=== PATIENT | male | born 1990 | race Two or more races ===

== ENCOUNTER 2025-01-16 14:33 | Emergency (ER) | payer MEDICAID, SELFPAY ==
[2025-01-16 15:18] VITALS: BP 144/83; PULSE 103; RESP 18; TEMP 37.4; O2SAT 97; BMI 28.3
--- NOTE | 2025-01-16 15:41 | XR_ITS ---
Examination: Foot, left, 3 views Technique: AP, oblique, lateral views foot, 3 views Date and time of exam: January 16, 2025, 1605 hours INDICATIONS: Left foot swelling and pain beginning 3 days ago FINDINGS: Soft tissue swelling about the fourth digit No fracture No severo cortical bone destruction IMPRESSION: Prominent soft tissue swelling about the fourth digit although no severo cortical bone destruction MRI foot without contrast follow-up would best assess for early osteomyelitis fourth digit as well as soft tissue abscess
--- NOTE | 2025-01-16 15:41 | XR_ITS ---
EXAMINATION: Ankle, left 3 views. Technique: Ankle AP, oblique, lateral 3 views Date and time of exam: January 16, 2025, 1601 hours INDICATIONS: Left ankle pain today FINDINGS: Bimalleolar soft tissue swelling No ankle fracture or dislocation No foreign body IMPRESSION: No ankle fracture or dislocation
--- NOTE | 2025-01-16 15:45 | PD.EDRME ---
Rapid Medical Screening Exam E Arrival date/time: 01/16/25 14:33 This is a 34-year-old male that comes into the emergency room with complaints of left foot swelling. Patient states has been going on for the past 2 to 3 days. Patient states he is diabetic. Patient has fever and chills. I have greeted and performed a focused initial assessment of this patient. Initial appropriate labs ordered at this time. A comprehensive ED assessment and evaluation of the patient and analysis of all test and completion of medical decision making process will be conducted by additional ED provider. Chief Complaint: Skin/Abscess/Foreign Body Time Seen by Provider: 01/16/25 15:03 Vital signs: Vital Signs Temperature 99.4 F 01/16/25 15:18 Pulse Rate 103 H 01/16/25 15:18 Respiratory Rate 18 01/16/25 15:18 Blood Pressure 144/83 H 01/16/25 15:18 Pulse Oximetry (%) 97 01/16/25 15:18 Oxygen Delivery Method Room Air 01/16/25 15:18 Exam: Pain to right foot with mild erythema around the toes. Breathing even unlabored. Alert and oriented Clinical Impression: Foot pain
--- NOTE | 2025-01-16 16:07 | PC.NURSE ---
PT CALLED BACK TO BE TAKEN TO A ROOM. NO RESPONSE FROM LOBBY OR OUTSIDE X1 @[phone]
[2025-01-16 16:15] LABS: Lactate (Lactic Acid) 1.3 mMol/L (0.4-2.0)
[2025-01-16 16:24] LABS: Basophils # (Auto) 0.0 Thou/mm3 (0.0-0.2); Basophils % (Auto) 0 % (0-2.5); Eosinophils # (Auto) 0.1 Thou/mm3 (0.0-0.5); Eosinophils % (Auto) 1 % (0-10); Hematocrit 41.7 % (41.0-53.0); Hemoglobin 14.4 g/dL (13.5-16.0); Immature Granulocytes Auto 0.03 Thou/mm3 (0.00-0.00); Lymphocytes # (Auto) 0.7 Thou/mm3 (1.0-4.8); Lymphocytes % (Auto) 7 % (10-50); Mean Corpuscular HGB Conc 34.5 g/dl (31.0-37.0); Mean Corpuscular Hemoglobin 30.1 pg (25.0-35.0); Mean Corpuscular Volume 87 fL (80-100); Monocytes # (Auto) 0.5 Thou/mm3 (0.0-0.8); Monocytes % (Auto) 5 % (0-12); Neutrophils # (Auto) 9.1 Thou/mm3 (1.8-7.7); Neutrophils % (Auto) 87 % (37-80); Nucleated Red Blood Cell # 0.00 Thou/mm3 (0.00-0.00); Nucleated Red Blood Cell % 0 /100 WBC (0); Platelet Count 162 Thou/mm3 (140-440); RDW Standard Deviation 37.5 fL (35.1-43.9); Red Blood Count 4.79 Miln/mm3 (4.50-5.90); White Blood Count 10.4 Thou/mm3 (3.8-10.6)
--- NOTE | 2025-01-16 16:28 | PC.NURSE ---
PT IN TODAY WITH LEFT FOOT PAIN AND WOUND. PT STATES THAT HE HAD A WART IN BETWEEN THE 4TH AND 5TH TOE AND THEN WORE HIS SHOES, WHICH WERE TIGHTER AND THEN NOTICED DISCOLORATION AND FOUL SMELL COMING FOR WOUND. ON ASSESSMENT PT DOES PRESENT WITH DISCOLORATION AND DRAINAGE. DR. SHARMA AT BEDSIDE.
--- NOTE | 2025-01-16 16:50 | EDNOTE_ITS ---
<Statement entered by Deysi Penn MD - 01/17/25 17:58> I, Deysi Penn MD, have reviewed the history, exam, and assessment of the patient. I have evaluated the patient independently and agree with the plan of care documented by [ ]. All diagnostic studies were reviewed and discussed. I confirm the diagnosis as documented by the Resident. I was present during the Medical Decision Making for this patient. The patient's plan of care was created between myself and the Resident and consistent with our discussion of the patient's case. ED Skin Abcess FB-RME/HPI General Chief complaint: Skin/Abscess/Foreign Body Stated complaint: LEFT FOOT PAIN/SWELLING, HIGH BS Time Seen by Provider: 01/16/25 15:03 Arrival date/time: 01/16/25 14:33 addendum to note: Hospital team and general surgery had accepted patient but patient refused admission. Patient is alert and oriented x 3 has full capacity. Patient understands risk of limb, blood infection, and loss of life by living. Antibiotics will be sent to patient's pharmacy with understanding if symptoms worsen-including but not limited to fever, worsening pain, and worsening swelling, to return to the emergency room. Patient left against medical advice. 2 weeks of Doxycyline 100 mg BID and Amoxicllin-[id number] mg BID for 2 weeks. Nuha Villa MD PGY-2 RME / HPI RME / HPI narrative: 01/16/25 14:33 CC: left foot swelling Patient is a 34-year-old male with a past medical history of diabetes mellitus type 2 insulin-dependent, non-adherent to insulin possibly glargine 35 units daily who presented to the emergency room via private vehicle with a chief complaint of left foot pain and swelling. Stated symptoms started approximately 8 months ago after using a nail clipper to remove excess skin between 4th and 5th digit. Swelling and erythema has increased within the last 2-3 days. Paitnet denied pain to site. Denied trauma. Per patient, last tetanus shot about 1 year ago. Last A1c 12.1 per patient's PCP. Exam: Pain to right foot with mild erythema around the toes. Breathing even unlabored. Alert and oriented Impression: Foot pain Related Data Home Medications ?Medication ?Instructions ?Recorded ?Confirmed insulin pump cartridge 05/13/17 05/13/17 metformin 500 mg tablet 500 mg PO BID 05/13/1705/13 Previous Rx's ?Medication ?Instructions ?Recorded amoxicillin 875 mg-potassium 1 tab PO BID diabetic julius t 01/16/25 clavulanate 125 mg tablet infection 2 weeks #28 tabs doxycycline monohydrate 100 mg 100 mg PO BID diabetic foot 01/16/25 capsule infection 2 weeks #28 caps Allergies Allergy/AdvReac Type Severity Reaction Status Date / Time WATERMELON Allergy Unknown Uncoded 05/13/17 17:52 Review of Systems Review of Systems Narrative Review of Systems: General appearance: NO weight change, NO fatigue, NO weakness, NO fever, NO chills, NO night sweats, No cough Skin: NO rash, NO itching, NO sores, NO moles HEENT: NO Trauma, NO nausea, NO vomiting, NO visual changes, NO blurry vision, NO double vision, NO tinnitus, NO vertigo, NO ear discharge, NO rhinorrhea, NO stuffiness, NO sneezing, NO allergy, NO epistaxis. NO Hoarseness, NO sore throat, NO swollen neck. Cardiac: NO Palpitations, NO dyspnea on exertion, NO orthopnea, NO paroxysmal nocturnal dyspnea, NO edema Respiratory: NO Shortness of Breath, NO Wheezing, NO Cough, NO Sputum, NO hemoptysis GI:NO appetite, NO nausea, NO vomiting, NO dysphagia, NO changes in bowel frequency, NO stool color, NO diarrhea, NO constipation, NO hemetemesis, NO hemorrhoids, NO melena, NO hematechezia, NO abdominal pain, NO jaundice Renal: NO frequency, NO hesitancy, NO urgency, NO hematuria, NO nocturia, NO incontinence MSK: Swelling and Redness between 4th and 5th digits on left lower extremity, NO muscle weakness, NO gout, NO arthritis, NO muscle stiffness Neuro: NO headaches, NO tremors, NO weakness, NO paralysis, NO seizures, NO loss of consciousness, NO numbness. Hem: NO anemia, NO easy bruising/bleeding, NO petechiae, NO purpura Endo: NO heat/cold intolerance, NO excessive sweating, NO polyuria, NO polydipsia, NO polyphagia, NO thyroid problems, Yes diabetes Pysch: NO mood, NO anxiety, NO depressiona ED Exam Narrative Physical exam: General Appearance: Alert & Oriented X3, well-nourished male who is lying in bed in no acute distress. Left lower extremity between 4-5 digit white discharge noted, foul smelling, erythematous, and warm to touch, Right 5th digit diabetic foot ulcer HEENT: Skull symmetrical and atraumatic. Conjunctivae pink and moist. Pupils equal, round, reactive to light and accommodation (PERRL). External ear without lesion or discharge. Straight, nares patient, mucosa pink, no discharge. Cardio: Normal Rate and Rhythm with S1 and S2 heart sounds. No murmurs or extra heart sounds auscultated. No bruits on carotid auscultation. No peripheral edema or cyanosis. Lungs: Symmetric with good expansion. Chest and back non-tender. Breath sounds vesicular without crackles, wheezing or rhonchi Abdomen: Non-tender, Non-distended, Normal Reactive Bowel Sounds Neuro: Alert, cooperative, oriented to person, place, and time. Speech clear. CN grossly intact. Upper motor strength 5/5 and Lower motor strength 5/5. Sensation intact. Course Course Course Narrative: CBC CMP Lactic Acid ESR CRP Ankle and Foot x-ray Quality Measures none Orders Category Date Time Status Consult to General Surgery Stat Cons 01/16/25 17:39 Ordered XR ankle comp LT min 3V Stat Exams 01/16/25 15:41 Completed XR foot comp LT min 3V Stat Exams 01/16/25 15:41 Completed A1C [Glycohemoglobin w (eAG)] Routine Lab 01/16/25 15:55 Received Blood Culture (Lab) Stat Lab 01/16/25 16:00 Received CBC Stat Lab 01/16/25 15:55 Completed CRP [C-Reactive Protein] Stat Lab 01/16/25 15:55 Completed Comprehensive Metabolic Panel Stat Lab 01/16/25 15:55 Completed ESR [Sed Rate (ESR)] Stat Lab 01/16/25 15:55 Completed Lactate (Lactic Acid) Stat Lab 01/16/25 15:55 Completed Procalcitonin Stat Lab 01/16/25 15:55 Completed Urinalysis, C/S if Indicated Stat Lab 01/16/25 16:46 Completed INSULIN LISPRO (AdmeLOG) [HumaLOG] Med 01/16/25 16:50 Discontinued 3 unit SC X1 ONE cefTRIAXone/D5w 1gm IV premix [Rocephin/D5w 1gm IV Med 01/16/25 16:49 Discontinued premix] 1 gm in 50 ml IV X1 metroNIDAZOLE/NS 500 MG IVPB [Flagyl 500 mg IV] Med 01/16/25 16:49 Discontinued 500 mg in 100 ml IV X1 Vital Signs Vital signs: Vital Signs Temperature 99.4 F 01/16/25 15:18 Pulse Rate 103 H 01/16/25 15:18 Respiratory Rate 18 01/16/25 15:18 Blood Pressure 144/83 H 01/16/25 15:18 Pulse Oximetry (%) 97 01/16/25 15:18 Oxygen Delivery Method Room Air 01/16/25 15:18 Skin / Abscess / Foreign Body Patient data External records reviewed:: Other (specify) Clinical information provided by:: patient Social determinants that could affect healthcare access:: none Patient has the following chronic illnesses:: Diabetes Mellitus Type 2 How is presenting disease/condition affected by chronic disease/condition?: exacerbated by (by diabetes mellitus type 2 insulin dependent ) Evaluation data The following diagnostics were reviewed and interpreted by me:: lab results, radiology exam(s) and EKG tracing(s) Lab and/or radiology exams considered but not ordered:: None Interpretation Summary: Ira presented wtih a chief complain of soft tissue cellulits/Diabetic Foot likely worsened by history of uncontrolled hyperglycemia/diabetes mellitus type 2 non-insulin depdent Given patient's clinical presentation with erythema, warmth, and discharge from 4th and 5th digit, likely soft tissue cellulitis. foot x-ray noted to have swelling. Medications / Prescriptions Medications or Prescriptions considered but not ordered:: None Medication administrations:: Medication Administration History Discontinued Medications Ceftriaxone Sodium/Dextrose (Rocephin/D5w 1gm Iv Premix) 1 gm in 50 mls @ 100 mls/hr IV X1 ONE Stop: 01/16/25 17:18 Last Infusion: 01/16/25 17:48 Dose: Infused Documented By: Admin: 01/16/25 17:16 Dose: 100 mls/hr Documented By: KRIS Metronidazole (Flagyl 500 Mg Iv) 500 mg in 100 mls @ 100 mls/hr IV X1 ONE Stop: 01/16/25 17:48 Last Admin: 01/16/25 17:47 Dose: 100 mls/hr Documented By: KRIS Insulin Human Lispro (Insulin Lispro (Admelog) 1 Unit/0.01 Ml Unit) 3 unit SC X1 ONE Stop: 01/16/25 16:51 Last Admin: 01/16/25 17:21 Dose: 3 unit Documented By: KRIS Co-signed By: ED same as above Consultations Consultation(s) initiated? (list below): Yes Consultation #1 (Physician, Specialty, Details): General Surgery, Dr. Masters Time: 05:35 Diagnosis Skin/Abscess Differential Diagnosis: cellulitis, insect bites and other (Osteo ) Most likely diagnosis given after review of the tests above:: Patient presented with a chief complain of soft tissue cellulits likely worsened by history of uncontrolled hyperglycemia/diabetes mellitus type 2 non-insulin depdendent Given patient's clinical presentation with erythema, warmth, and discharge from 4th and 5th digit, likely soft tissue cellulitis. foot x-ray noted to have swelling. - The patient's plan was discussed with attending Dr. Fili Villa MD PGY2 Internal Medicine Admission Indicated Admission indicated?: indicated Explain why admission is indicated or not indicated:: I&D for soft tissue cellulitis that is noted to have erythema, swelling, and foul smelling discharge. Admission Request Was there a request for admission?: Yes Admission Attestation Admission request attestation: Discussed case with [] from Hospitalist service regarding admission. Discussed patients ED course, exam findings, labs, and radiology results. The Hospitalist [agrees,declines] to accept the patient for admission. Disposition Plan Disposition Plan: Admit Discharge Plan Plan Patient Disposition: Admit Acute Care w/in Hospital Prescriptions/Referrals Prescriptions/Med Rec: New amoxicillin-pot clavulanate 875-125 mg tablet 1 tab PO BID 14 Days Qty: 28 0RF doxycycline monohydrate 100 mg capsule 100 mg PO BID 14 Days Qty: 28 0RF Continued metformin 500 mg Tablet 500 mg PO BID (DME) insulin pump cartridge Cartridge Referrals: Yann Sun MD [Primary Care Provider, Family Practice] - In 1 week Problem List Clinical Impression: Diabetic foot infection, Cellulitis, Soft tissue infection Patient/Caregiver Discharge Instructions Print Language: Cameroonian Stand Alone Forms: Shonna Award Info., Patient Portal Info Letter
[2025-01-16 16:51] LABS: Collection Type, Urine Voided; Squamous Epithelial Cell,Urine 0 /hpf (0-5)
[2025-01-16 17:08] LABS: Bacteria,Urine Rare; Bilirubin,Urine Negative (Negative); Blood,Urine 2+ (Negative); Clarity,Urine Clear (Clear/Hazy); Color,Urine Yellow (Lt Yel-Yel); Culture Indicated,Urine Not Indicated; Glucose, Urine 4+ (Negative); Ketones,Urine Negative (Negative); Leukocyte Esterase,Urine Negative (Negative); Nitrite,Urine Negative (Negative); PH,Urine 6.0 (5.0-7.0); Protein,Urine 2+ (Neg - Trace); RBC,Urine 30 /hpf (0-3); Urobilinogen,Urine 2.0 mg/dL (0.0-1.0); WBC,Urine 1 /hpf (0-5)
[2025-01-16 17:13] LABS: Specific Gravity,Urine 1.025 (1.001-1.035)
[2025-01-16] MEDS: cefTRIAXone/D5w 1gm IV premix 1 GM/50 ML BAG IV (17:16)
[2025-01-16] MEDS: INSULIN LISPRO (AdmeLOG) 1 UNIT/0.01 ML UNIT 3 UNIT SC (17:21)
[2025-01-16 17:24] LABS: Alanine Aminotransferase 24 U/L (10-49); Albumin, Serum 4.7 gm/dL (3.5-5.0); Albumin/Globulin Ratio 1.8 (1.2-2.2); Alkaline Phosphatase 105 U/L (46-116); Anion Gap 9 (7-16); Aspartate Amino Transferase 23 U/L (0-34); BUN/Creatinine Ratio 12 Ratio (12-20); Bilirubin,Total 0.8 mg/dL (0.3-1.2); Blood Urea Nitrogen 14 mg/dL (9-23); C-Reactive Protein 5.3 mg/dL (0.0-0.9); Calcium 9.4 mg/dL (8.3-10.6); Calcium (Corrected) 9.4 mg/dL (8.5-10.1); Carbon Dioxide 28.3 mMol/L (20.0-31.0); Chloride 101 mMol/L (98-107); Creatinine (Component) 1.2 mg/dL (0.6-1.3); Estimated Creatinine Clearance 88.1 mL/min (>60); Globulin 2.6 gm/dL (2.3-3.5); Glucose 359 mg/dL (74-106); Osmolality,Calculated 290 (275-295); Potassium 4.6 mMol/L (3.4-5.1); Procalcitonin 0.10 ng/ml (0.0-0.49); Sodium 138 mMol/L (136-145); Total Protein 7.3 gm/dL (5.7-8.2); eGFR > 60 See Note
[2025-01-16] MEDS: metroNIDAZOLE/NS 500 MG IVPB 500 MG/100 ML BAG 100 MG IV (17:47)
[2025-01-16 17:55] LABS: Sed Rate (ESR) 61 mm/hr (0-15)
--- NOTE | 2025-01-16 18:26 | PC.NURSE ---
PT WAS TALKING TO DR. DEL VALLE AND WANTS TO LEAVE AMA. PT WAS EXPLAINED THAT HIS INFECTION TO HIS TOE COULD GET WORSE AND EVEN CAUSE . PT VERBALIZED UNDERSTANDING AND SIGNED AMA PAPERWORK.
[2025-01-16 18:29] LABS: Glucose Estimated Average 286 mg/dL (80-131); Hemoglobin A1C 11.6 % Hgb (4.8-6.0)
--- NOTE | 2025-01-16 18:34 | EVENTNT_ITS ---
Documentation for date of: 01/16/25 Event Note Event Note: Mr Dumont is a 34 year old gentleman with a history of uncontrolled DM not taking insulin as prescribed due to a fear of needles, he was noted to have worsening L foot pain and swelling of his fourth digit with imaging c/f osteomyelitis, elevated CRP. Surgery was consulted for the L toe by the ed and inpatient medicine team was called for admission. I went to evaluate the patient who expressed that he did not want to stay in the hospital, stating that he had to take care of a few things and that he would return to the hospital after making arrangements for his dog, and his work, and his upcoming orientation with [employer]. ED physician was notified of patient requesting to leave and was counseled by them about the risks of leaving against medical advice. VS: tachycardic to 103, afebrile, satting well on room air PE: I visually inspected his L foot which demonstrated an erythematous and edetous L fourth digit with erythema extending to the dorsum of the foot with clear line of demarcation. Plan discussed with my attending Dr. Bibi Dietz MD PGY1
== END 2025-01-16 18:25 | disposition admitted as inpatient to this hospital (09) ==
PROVIDERS: Emergency Provider Nurse Practitioner Family; PCP Family Medicine
DX: E11.628 Type 2 diabetes mellitus with other skin complications (principal); L02.612 Cutaneous abscess of left foot
CPT/HCPCS: 36415; 73610; 73630; 80053; 81001; 83036; 83605; 84145; 85025; 85652; 86140; 87040; 96365; 99283; J0696; J1815; J3490; J1836

== ENCOUNTER 2025-01-17 11:41 | Inpatient (IN) | payer MEDICAID, SELFPAY ==
[2025-01-17 11:41] VITALS: BMI 28.3
[2025-01-17 11:56] VITALS: BP 147/98; PULSE 89; RESP 18; TEMP 36.9; O2SAT 99
--- NOTE | 2025-01-17 12:02 | EDRME_ITS ---
Rapid Medical Screening Exam [facility] Arrival date/time: 01/17/25 11:41 34-year-old male with a history of type 2 diabetes presents to the emergency room with a chief complaint of osteomyelitis to his left foot fourth digit. Patient was admitted yesterday for osteomyelitis but the patient signed out AGAINST MEDICAL ADVICE due to personal matters. I have greeted and performed a focused initial assessment of this patient. A comprehensive ED assessment and evaluation of the patient, analysis of all test results, and completion of the medical decision making process will be conducted by additional ED providers. Chief Complaint: Ankle/Foot Injury Time Seen by Provider: 01/17/25 11:59 Vital signs: Vital Signs Temperature 98.5 F 01/17/25 11:56 Pulse Rate 89 01/17/25 11:56 Respiratory Rate 18 01/17/25 11:56 Blood Pressure 147/98 H 01/17/25 11:56 Pulse Oximetry (%) 99 01/17/25 11:56 Oxygen Delivery Method Room Air 01/17/25 11:56 Vital signs reviewed by provider: Yes Exam: Erythemic, pus draining, tender fourth digit in the left foot Patient is a GCS of 15 alert oriented x 3 Clinical Impression: Osteomyelitis/cellulitis
[2025-01-17 12:24] LABS: Lactate (Lactic Acid) 1.2 mMol/L (0.4-2.0)
[2025-01-17 12:25] LABS: Basophils # (Auto) 0.0 Thou/mm3 (0.0-0.2); Basophils % (Auto) 0 % (0-2.5); Eosinophils # (Auto) 0.1 Thou/mm3 (0.0-0.5); Eosinophils % (Auto) 1 % (0-10); Hematocrit 39.9 % (41.0-53.0); Hemoglobin 13.3 g/dL (13.5-16.0); Immature Granulocytes Auto 0.01 Thou/mm3 (0.00-0.00); Lymphocytes # (Auto) 0.9 Thou/mm3 (1.0-4.8); Lymphocytes % (Auto) 12 % (10-50); Mean Corpuscular HGB Conc 33.3 g/dl (31.0-37.0); Mean Corpuscular Hemoglobin 29.7 pg (25.0-35.0); Mean Corpuscular Volume 89 fL (80-100); Monocytes # (Auto) 0.5 Thou/mm3 (0.0-0.8); Monocytes % (Auto) 7 % (0-12); Neutrophils # (Auto) 6.0 Thou/mm3 (1.8-7.7); Neutrophils % (Auto) 80 % (37-80); Nucleated Red Blood Cell # 0.00 Thou/mm3 (0.00-0.00); Nucleated Red Blood Cell % 0 /100 WBC (0); Platelet Count 166 Thou/mm3 (140-440); RDW Standard Deviation 38.5 fL (35.1-43.9); Red Blood Count 4.48 Miln/mm3 (4.50-5.90); White Blood Count 7.6 Thou/mm3 (3.8-10.6)
[2025-01-17 12:43] LABS: Collection Type, Urine Clean Catch; Squamous Epithelial Cell,Urine 0 /hpf (0-5)
[2025-01-17 12:58] LABS: Bacteria,Urine Rare; Bilirubin,Urine Negative (Negative); Blood,Urine 1+ (Negative); Color,Urine Yellow (Lt Yel-Yel); Glucose, Urine 4+ (Negative); Ketones,Urine 1+ (Negative); Leukocyte Esterase,Urine Negative (Negative); Nitrite,Urine Negative (Negative); PH,Urine 6.5 (5.0-7.0); Protein,Urine 2+ (Neg - Trace); RBC,Urine 60 /hpf (0-3); Specific Gravity,Urine 1.049 (1.001-1.035); Urobilinogen,Urine 4.0 mg/dL (0.0-1.0); WBC,Urine 1 /hpf (0-5)
[2025-01-17 13:02] LABS: Alanine Aminotransferase 19 U/L (10-49); Albumin, Serum 4.4 gm/dL (3.5-5.0); Albumin/Globulin Ratio 1.5 (1.2-2.2); Alkaline Phosphatase 92 U/L (46-116); Anion Gap 7 (7-16); Aspartate Amino Transferase 15 U/L (0-34); BUN/Creatinine Ratio 13 Ratio (12-20); Bilirubin,Total 0.9 mg/dL (0.3-1.2); Blood Urea Nitrogen 13 mg/dL (9-23); C-Reactive Protein 8.0 mg/dL (0.0-0.9); Calcium 9.4 mg/dL (8.3-10.6); Calcium (Corrected) 9.4 mg/dL (8.5-10.1); Carbon Dioxide 28.1 mMol/L (20.0-31.0); Chloride 102 mMol/L (98-107); Creatinine (Component) 1.0 mg/dL (0.6-1.3); Estimated Creatinine Clearance 105.7 mL/min (>60); Globulin 3.0 gm/dL (2.3-3.5); Glucose 292 mg/dL (74-106); Osmolality,Calculated 284 (275-295); Potassium 4.1 mMol/L (3.4-5.1); Procalcitonin 0.26 ng/ml (0.0-0.49); Sodium 137 mMol/L (136-145); Total Protein 7.4 gm/dL (5.7-8.2); eGFR > 60 See Note
[2025-01-17 13:03] LABS: Clarity,Urine Hazy (Clear/Hazy)
[2025-01-17 13:22] LABS: Sed Rate (ESR) 67 mm/hr (0-15)
--- NOTE | 2025-01-17 14:18 | EDNOTE_ITS ---
ED General RME/HPI General Chief complaint: Ankle/Foot Injury Stated complaint: INFECTED LEFT TOE, LEFT AMA YESTERDAY Time Seen by Provider: 01/17/25 11:59 Arrival date/time: 01/17/25 11:41 CC: Left foot pain HPI patient has had infection in the left fifth toe, patient states that he was trying to fix it and dug too deep into it , causing increased pain and swelling now the patient has redness of the toe. Patient was admitted yesterday for osteomyelitis, returns after making arrangements for his dog his work, and his orientation for [employer] on the coming Friday. Patient now notes that he has red streaking to the dorsum of the foot not just the toe. Patient denies fever pain is consistent at a 4 to a 5 on a 10 scale increased to a 7 to an 8 while walking. Patient denies fever vomiting shortness of breath or difficulty breathing. RME / HPI RME / HPI narrative: 01/17/25 11:41 34-year-old male with a history of type 2 diabetes presents to the emergency room with a chief complaint of osteomyelitis to his left foot fourth digit. Patient was admitted yesterday for osteomyelitis but the patient signed out AGAINST MEDICAL ADVICE due to personal matters. I have greeted and performed a focused initial assessment of this patient. A comprehensive ED assessment and evaluation of the patient, analysis of all test results, and completion of the medical decision making process will be conducted by additional ED providers. Exam: Erythemic, pus draining, tender fourth digit in the left foot Patient is a GCS of 15 alert oriented x 3 Impression: Osteomyelitis/cellulitis Related Data Home Medications ?Medication ?Instructions ?Recorded ?Confirmed insulin pump cartridge 05/13/17 01/17/25 metformin 500 mg tablet 500 mg PO BID 05/13/1701/17 Previous Rx's ?Medication ?Instructions ?Recorded amoxicillin 875 mg-potassium 1 tab PO BID diabetic julius t 01/16/25 clavulanate 125 mg tablet infection 2 weeks #28 tabs doxycycline monohydrate 100 mg 100 mg PO BID diabetic foot 01/16/25 capsule infection 2 weeks #28 caps Allergies Allergy/AdvReac Type Severity Reaction Status Date / Time pollen extracts Allergy Severe Swelling Verified 01/17/25 11:44 of Lip/Tongue/Throat Review of Systems Review of Systems Narrative Review of Systems: GEN: No fever, no chills, no weight loss EYES: No discharge, no visual changes, no pain HEENT: No ear pain, no congestion, no sore throat PULM: No shortness of breath, no cough, no congestion CV: No chest pain, no dyspnea on exertion, no palpitations GI: No nausea, no vomiting, no diarrhea, no pain, no constipation : No frequency, no urgency, no dysuria MUSC/SKEL: + joint pain, no back pain SKIN: No rash PSYCH: No hallucinations, no depression HEME/LYMPH: No easy bleeding or bruising tendencies NEURO: No weakness, no headache Past Medical History Past Medical History NEUROLOGIC: Negative Neurological Disorders CARDIAC: Negative Cardiac Disorders or Congestive Heart Failure RESPIRATORY: Negative Chronic Obstructive Pulmonary Disease (COPD) GASTROINTESTINAL: Negative Gastrointestinal Disorders GENITOURINARY: Negative Genitourinary Disorders or Renal Disease MUSCULOSKELETAL: Negative Musculoskeletal Disorders ENDOCRINE: Positive Endocrine Disorders and Diabetes Mellitus Type 2; Negative Diabetes Mellitus Type 1 HEMATOLOGIC: Negative Blood Disorders Social History SMOKING STATUS: Current every day smoker ED Exam Narrative Physical exam: [General: Not in any acute distress Head normocephalic HEENT: Within acceptable limits Neck is supple nontender Chest equal chest rise nontender to palpation Respiratory: Clear to auscultation no wheezes crackles or rubs CV: Rate rhythm is regular no murmurs rubs or clicks Abdomen is soft nontender no masses positive bowel sounds all 4 quadrants Back: No CVA tenderness no spinous process tenderness from cervical spine thoracic and lumbar spine Skin: Large serous bulla to the fifth digit of the left toe with erythematous streaking to the dorsum of the foot. Tender to palpation. Otherwise skin is intact no petechiae rash induration ulceration or crepitus Extremities: Decreased range of motion of the left fifth digit secondary to pain. Otherwise moving all other extremities against resistance cap refill less than 2 seconds neurosensory intact Neuro: Awake alert oriented x3 Glascow coma 15 no focal deficits] Course Quality Measures none Orders Category Date Time Status Patient Condition Routine Admission 01/17/25 15:10 Ordered COVID-19 Screening Questionnaire NOW Care 01/17/25 15:03 Completed Decision to Admit X1 Care 01/17/25 15:03 Completed Notify provider NEEDED Care 01/17/25 15:10 Active Saline [Insert IV] NOW Care 01/17/25 14:15 Active CBC AM DRAW Lab 01/18/25 05:00 Ordered CBC AM DRAW Lab 01/19/25 05:00 Ordered CBC AM DRAW Lab 01/20/25 05:00 Ordered CBC AM DRAW Lab 01/21/25 05:00 Ordered CBC AM DRAW Lab 01/22/25 05:00 Ordered CBC AM DRAW Lab 01/23/25 05:00 Ordered CBC AM DRAW Lab 01/24/25 05:00 Ordered CBC AM DRAW Lab 01/25/25 05:00 Ordered CBC AM DRAW Lab 01/26/25 05:00 Ordered CBC AM DRAW Lab 01/27/25 05:00 Ordered CBC Stat Lab 01/17/25 12:10 Completed CMP [Comprehensive Metabolic Panel] Stat Lab 01/17/25 12:10 Completed CRP [C-Reactive Protein] Stat Lab 01/17/25 12:10 Completed Comprehensive Metabolic Panel AM DRAW Lab 01/18/25 05:00 Ordered Comprehensive Metabolic Panel AM DRAW Lab 01/19/25 05:00 Ordered Comprehensive Metabolic Panel AM DRAW Lab 01/20/25 05:00 Ordered Comprehensive Metabolic Panel AM DRAW Lab 01/21/25 05:00 Ordered Comprehensive Metabolic Panel AM DRAW Lab 01/22/25 05:00 Ordered Comprehensive Metabolic Panel AM DRAW Lab 01/23/25 05:00 Ordered Comprehensive Metabolic Panel AM DRAW Lab 01/24/25 05:00 Ordered Comprehensive Metabolic Panel AM DRAW Lab 01/25/25 05:00 Ordered Comprehensive Metabolic Panel AM DRAW Lab 01/26/25 05:00 Ordered Comprehensive Metabolic Panel AM DRAW Lab 01/27/25 05:00 Ordered ESR [Sed Rate (ESR)] Stat Lab 01/17/25 12:10 Completed Lactate (Lactic Acid) Stat Lab 01/17/25 12:10 Completed Magnesium AM DRAW Lab 01/18/25 05:00 Ordered Magnesium AM DRAW Lab 01/19/25 05:00 Ordered Magnesium AM DRAW Lab 01/20/25 05:00 Ordered Magnesium AM DRAW Lab 01/21/25 05:00 Ordered Magnesium AM DRAW Lab 01/22/25 05:00 Ordered Magnesium AM DRAW Lab 01/23/25 05:00 Ordered Magnesium AM DRAW Lab 01/24/25 05:00 Ordered Magnesium AM DRAW Lab 01/25/25 05:00 Ordered Magnesium AM DRAW Lab 01/26/25 05:00 Ordered Magnesium AM DRAW Lab 01/27/25 05:00 Ordered Phosphorous AM DRAW Lab 01/18/25 05:00 Ordered Phosphorous AM DRAW Lab 01/19/25 05:00 Ordered Phosphorous AM DRAW Lab 01/20/25 05:00 Ordered Phosphorous AM DRAW Lab 01/21/25 05:00 Ordered Phosphorous AM DRAW Lab 01/22/25 05:00 Ordered Phosphorous AM DRAW Lab 01/23/25 05:00 Ordered Phosphorous AM DRAW Lab 01/24/25 05:00 Ordered Phosphorous AM DRAW Lab 01/25/25 05:00 Ordered Phosphorous AM DRAW Lab 01/26/25 05:00 Ordered Phosphorous AM DRAW Lab 01/27/25 05:00 Ordered Procalcitonin Stat Lab 01/17/25 12:10 Completed UA [Urinalysis] Stat Lab 01/17/25 12:10 Completed Urine Culture Stat Lab 01/17/25 12:10 Received Acetaminophen Tab [Tylenol Tab] Med 01/17/25 15:10 Discontinued 650 mg PO Q6H PRN Acetaminophen Tab [Tylenol Tab] Med 01/17/25 15:20 Active 650 mg PO Q6H PRN Heparin Inj Med 01/17/25 21:00 Active 5,000 unit SC Q12HR Ibuprofen Tab [Motrin Tab] Med 01/17/25 15:10 Discontinued 400 mg PO Q6HR PRN Ibuprofen Tab [Motrin Tab] Med 01/17/25 15:25 Active 400 mg PO Q6HR PRN Ondansetron Inj [Zofran Inj] Med 01/17/25 15:10 Active 4 mg IVP Q6H PRN Piper/Tazo 3.375 gm Premix [Zosyn] Med 01/17/25 14:17 Discontinued 3.375 gm in 50 ml IV X1 Vancomycin Inj 1,000 mg Med 01/17/25 14:18 Discontinued Sodium Chloride 0.9% 250 ml [Ns] 250 ml IV X1 ceFAZolin/D5W 2 GM IV [Ancef 2gm Ivpb] Med 01/17/25 15:25 Discontinued 2 gm in 100 ml IV Q8HR oxyCODONE/APAP 5/325 [Percocet 5/325] Med 01/17/25 15:10 Active 1 tab PO Q6H PRN Code Status Routine Oth 01/17/25 15:10 Ordered Vital Signs Vital signs: Vital Signs Temperature 98.5 F 01/17/25 11:56 Pulse Rate 89 01/17/25 11:56 Respiratory Rate 18 01/17/25 11:56 Blood Pressure 147/98 H 01/17/25 11:56 Pulse Oximetry (%) 99 01/17/25 11:56 Oxygen Delivery Method Room Air 01/17/25 11:56 Discharge Plan Plan Patient Disposition: Other Care w/in Hosp ([facility]) Patient condition on transfer: Stable Problem List Clinical Impression: Osteomyelitis of fifth toe of left foot, Hyperglycemia due to diabetes mellitus, Cellulitis of foot PA/GALLERY MANAGER Supervising Physician PA/GALLERY MANAGER Supervising Physician: Rene Hernandez ENP [facility] Clinical Information Provided by: patient Medical Records reviewed [facility] Meds/Rx considered, not ordered None Labs/Rad/Tests considered, not ordered None Chronic Illness/Social Conditions Explain: Diabetes poorly controlled EKG EKG not done Labs Labs: interpreted by fl Lab(s) Interpretation(s): CBC shows no leukocytosis and H&H of 13.3 and 39.9 respectively. No thrombocytopenia ESR 67 CMP shows no significant electrolyte imbalances other than a glucose of 292 Lactic acid of 1.2. No transaminitis or T. bili elevation C-reactive protein at 8.0. Procalcitonin at 0.26 Urine suspect gravel 1.0491+ ketone 60 RBCs no other findings. Imaging Imaging interpretation: none Medication Administration(s) none Medication Administration History Acetaminophen (Acetaminophen 325 Mg Tablet) 650 mg PO Q6H PRN PRN Reason: PAIN SCALE 1-3 (mild Stop: 02/16/25 15:09 Dextrose (Dextrose 50%-Water Inj 50 Ml Syringe) 25 ml IV Q15MIN PRN PRN Reason: BG 50-70 responsive npo pt Stop: 02/16/25 15:26 Dextrose (Dextrose 50%-Water Inj 50 Ml Syringe) 50 ml IV Q15MIN PRN PRN Reason: BG <50 OR BG <70 & pt unresponsive Stop: 02/16/25 15:26 Glucagon (Glucagon Inj 1 Mg Vial) 1 mg IM Q15MIN PRN PRN Reason: BG <70, and no IV access Heparin Sodium (Porcine) (Heparin Sod Inj 5000 Unit/Ml Vial) 5,000 unit SC Q12HR [facility] Stop: 01/31/25 20:59 Last Admin: 01/17/25 22:05 Dose: 5,000 unit Documented By: SABAS Co-signed By: CURTIS Cefepime HCl 2 gm/ Sodium (Chloride) 50 mls @ 100 mls/hr IV Q8HR [facility] Stop: 01/24/25 16:00 Last Admin: 01/17/25 22:06 Dose: 100 mls/hr Documented By: Infusion: 01/17/25 17:09 Dose: Infused Documented By: Admin: 01/17/25 16:39 Dose: 100 mls/hr Documented By: ED Vancomycin HCl/Dextrose (Vancomycin/D5w 1,250 Mg Ivpb) 250 mls @ 125 mls/hr IV Q12HR@1000,2200 [facility] Stop: 01/24/25 21:59 Ibuprofen (Ibuprofen Tab 400 Mg Tablet) 400 mg PO Q6HR PRN PRN Reason: Fever > 100.4 Stop: 02/16/25 15:09 Insulin Degludec (Insulin Degludec 5 Unit/0.05 Ml (Per 5 Units)) 10 unit SC QDAY [facility] Stop: 02/16/25 15:29 Last Admin: 01/17/25 15:46 Dose: 10 unit Documented By: ED Co-signed By: DO Insulin Human Lispro (Insulin Lispro (Admelog) 1 Unit/0.01 Ml Unit) 7 unit SC AC [facility] Stop: 02/16/25 16:59 Last Admin: 01/17/25 18:15 Dose: 7 unit Documented By: ED Co-signed By: BRENDA Insulin Human Lispro (Insulin Lispro (Admelog) 1 Unit/0.01 Ml Unit) 0 unit SC ACHS [facility]; Protocol Stop: 02/16/25 22:29 Metronidazole (Metronidazole 250 Mg Tablet) 500 mg PO Q8HR [facility] Stop: 01/24/25 18:33 Last Admin: 01/17/25 20:40 Dose: 500 mg Documented By: SABAS Ondansetron HCl (Ondansetron Inj 2 Mg/Ml Inj 2 Ml) 4 mg IVP Q6H PRN; Protocol PRN Reason: NAUSEA OR VOMITING Stop: 02/16/25 15:09 Oxycodone/Acetaminophen (Oxycodone/Apap 5/325 Tablet) 1 tab PO Q6H PRN PRN Reason: PAIN SCALE 4-6 (Moderate Stop: 01/22/25 15:09 Pharmacy Consult (Vancomycin Pharmacy To Dose 1 Each Each) 1 each IV QDAY [facility] Stop: 02/17/25 08:59 Discontinued Medications Acetaminophen (Acetaminophen 325 Mg Tablet) 650 mg PO Q6H PRN PRN Reason: PAIN SCALE 1-3 (mild Stop: 02/16/25 15:09 Piperacillin/Tazobactam/Dextrose (Zosyn) 3.375 gm in 50 mls @ 100 mls/hr IV X1 ONE; Protocol Stop: 01/17/25 14:46 Last Infusion: 01/17/25 16:13 Dose: Infused Documented By: Admin: 01/17/25 15:43 Dose: 100 mls/hr Documented By: ED Vancomycin HCl 1,000 mg/ (Sodium Chloride) 250 mls @ 150 mls/hr IV X1 ONE Stop: 01/17/25 15:57 Last Admin: 01/17/25 18:06 Dose: 150 mls/hr Documented By: ED Cefazolin Sodium (Ancef 2gm Ivpb) 2 gm in 100 mls @ 100 mls/hr IV Q8HR [facility] Stop: 01/24/25 15:24 Ibuprofen (Ibuprofen Tab 400 Mg Tablet) 400 mg PO Q6HR PRN PRN Reason: Fever > 101 Stop: 02/16/25 15:09 Insulin Human Lispro (Insulin Lispro (Admelog) 1 Unit/0.01 Ml Unit) 0 unit SC AC [facility]; Protocol Stop: 02/16/25 16:59 Last Admin: 01/17/25 18:18 Dose: Not Given Documented By: ED Non-Admin Reason: Cancelled by Provider Diagnosis Differential Diagnosis ED Complaint MDM: Osteomyelitis cellulitis foot abscess
[2025-01-17 14:26] VITALS: BP 130/74; PULSE 71; RESP 16; TEMP 36.6; O2SAT 99
--- NOTE | 2025-01-17 15:00 | PC.NURSE ---
Pt. here from home to room 12, pt. here for wound to left foot and pain with walking on left foot. Pt. states he doesn't control his sugars and his diabetes.
--- NOTE | 2025-01-17 15:10 | PC.NURSE ---
Dr. Campa and Dr. Bellamy are bedside talking to pt. Dr. Campa states to outline pt.'s redness on left foot, done. Pt. has pitting edema +3 to outside left foot. Pt. left 4th toe is draining brown color fluid and has edema with motley color discharge around 4th toe. Pt. left foot is swollen and skin is tight, pt. states swollen X 4 days, pt. states redness started yesterday, pt. is non compliant controlling his DM.
--- NOTE | 2025-01-17 15:14 | ESHP_ITS ---
<Statement entered by Pato Campa MD - 01/17/25 17:11> Patient seen and examined at bedside. I discussed and supervised with the wedding planning internship physician who took care of this patient. I personally saw and examined the patient. I agree with most of the assessment and plan. Patient presented with pain, swelling, erythema of left 4th toe. All progressive, with erythema and swelling rapidly spreading over dorsum of foot for past day. Patient reports subjective fevers, no other systemic signs. History of uncontrolled diabetes, Patient reports noncompliance with insulin due to fear of needles. Given rapid progression of infection, vancomycin and cefepime ordered. General surgery consulted for debridemen, MRI pending. Basal bolus insulin and SSI ordered. Plan of care discussed with attending Dr. Winslow. Pato Campa MD PGY-2 Documentation for date of: 01/17/25 HPI History of Present Illness History of present illness: History of Present Illness Arnie Lee, is 34y/o male h PMH of type 2 diabetes, present to ED on 01/17/2025 for left 4th toe swelling that started about 4 days ago. The patient reported picking at callouses on the left fourth toe. Over the past four days, the area became swollen and painful. Yesterday, white discoloration appeared on the dorsal aspect of the left 4th toe, and the redness spread to the fifth toe. Today, the erythema spread rapidly to dorsum of the left foot. The patient also noted swelling of the lateral side of left foot with presence of a foul odor and purulent material between the 4th and 5th toes, although no active drainage was observed. Patient said he was able to ambulate but had significant pain with walking. He has a history of type 2 diabetes mellitus managed with metformin only. Patient was admitted for managment of cellulitis. ED course: Labs:WBC: 10.6, Hgb:14.4, HCO3-: 28.3, Glucose:359, HbA1c:11.6, Lactic acid:1.3, CRP:5.3, Procalcitonin:0.10 UA: Clear yellow urine, Urine protein:2+, Urine glucose:4+, Urine Blood:2+, Urine Nitrite: Negative, Urine Leukocyte Esterase: Negative, Urine RBC:30. Ankle XR (01/17/2025): No ankle fracture or dislocation Foot XR (01/17/2025): Prominent soft tissue swelling about the fourth digit although no severo cortical bone destruction In ED, patient received IV zosyn 3.375mg x1 and IV Vancomycin x1 Medical history: As stated above Surgical history: Denies Allergies: NKDA Medications: Pending official med rec Family history: Noncontributory Social history: Denies smoking cigarettes, drinking alcohol or using other illicit drugs ROS: All 12 systems assessed and the patient denies unless otherwise stated in HPI Review of Systems Review of Systems Narrative Review of Systems: All 12 systems assessed and the patient denies unless otherwise stated in HPI Exam Vital Signs Temp Pulse Resp BP Pulse Ox O2 Del Method 97.8 F 71 16 130/74 99 Room Air 01/17/25 14:26 01/17/25 14:26 01/17/25 14:26 01/17/25 14:26 01/17/25 14:26 01/17/25 14:26 Narrative Exam General: No acute distress, well nourished, AAO x3 Eye: PERRL, EOMI, normal conjunctiva, no scleral icterus HENT: Normocephalic, atraumatic, hearing intact to conversation at normal volume, moist oral mucosa Neck: Supple, non-tender, no JVD, no lymphadenopathy Lungs: Non-labored respirations, symmetric chest rise, Clear to auscultate bilaterally, No wheezing, rhonchi, crackles Heart: Peripheral pulses intact bilaterally, Regular Rate and Rhythm. Abdomen: Soft, non-tender, non-distended, no palpable masses Musculoskeletal: Normal range of motion and strength, Left feet +1 pitting edema. Skin: left 4th and 5th toe erythema, swelling, amaral discoloration in between toes. Visible redness on left dorsum of foot. Psychiatric: Cooperative, appropriate mood and affect, Awake and alert, not agitated Neuro: Cranial nerves II-XII grossly intact. Strength 5/5 throughout. Sensations intact to light touch. Results: Labs 01/17/25 12:10 01/17/25 12:10 Labs: Short CBC 01/17/25 Range/Units 12:10 WBC 7.6 (3.8-10.6) Thou/mm3 Hgb 13.3 L (13.5-16.0) g/dL Hct 39.9 L (41.0-53.0) % Plt Count 166 (140-440) Thou/mm3 BMP 01/17/25 12:10 Sodium 137 Potassium 4.1 D Chloride 102 Carbon Dioxide 28.1 BUN 13 Creatinine 1.0 Glucose 292 H D Calcium 9.4 Liver Function 01/17/25 Range/Units 12:10 Total Bilirubin 0.9 (0.3-1.2) mg/dL AST 15 (0-34) U/L ALT 19 (10-49) U/L Alkaline Phosphatase 92 (46-116) U/L Albumin 4.4 (3.5-5.0) gm/dL Urine 01/17/25 Range/Units 12:10 Urine Color Yellow (Lt Yel-Yel) Urine Clarity Hazy (Clear/Hazy) Urine pH 6.5 (5.0-7.0) Ur Specific [place] 1.049 H (1.001-1.035) Urine Protein 2+ A (Neg - Trace) Urine Glucose (UA) 4+ A (Negative) Quality Measures Quality Measures VTE prophylaxis Medications Home Medications and Allergies Home Medications ?Medication ?Instructions ?Recorded ?Confirmed ?Type insulin pump cartridge 05/13/17 05/13/17 History metformin 500 mg tablet 500 mg PO BID 05/13/1705/13 History Allergies Allergy/AdvReac Type Severity Reaction Status Date / Time pollen extracts Allergy Severe Swelling Verified 01/17/25 11:44 of Lip/Tongue/Throat Visit Medications Vancomycin HCl 1,000 mg/ (Sodium Chloride) 250 mls @ 150 mls/hr IV X1 ONE Stop: 01/17/25 15:57 Discontinued Medications Piperacillin/Tazobactam/Dextrose (Zosyn) 3.375 gm in 50 mls @ 100 mls/hr IV X1 ONE; Protocol Stop: 01/17/25 14:46 Assessment & Plan Plan Arnie Lee is 34y/o M with PMH of type 2 diabetes, present to ED on 01/17/2025 for left 4th toe swelling that started about 4 days ago. The patient reported picking at callouses on the left fourth toe. Patient was admitted for management of cellulitis. #Cellulitis of left 4th and 5th toe #Leukocytois- Resoving -Presented with white discoloration of dorsal aspect of the left 4th toe, and the redness spread to the fifth toe. Erythema in dorsum aspect of the left foot, swelling of the lateral side of left foot with presence of a foul odor and purulent material between the 4th and 5th toes, although no active drainage was observed. -Need to rule out necrotizing fascittis. -On admission, WBC:10.6, and CRP:5.3 -Ankle XR (01/17/2025): No ankle fracture or dislocation -Foot XR (01/17/2025): Prominent soft tissue swelling about the fourth digit although no severo cortical bone destruction Plan: -On IV Cefepime 2g q8hr (01/17-) and IV Vancomycin (01/17-) -Blood Cx pending -MRI w/o contrast of left foot pending. -Referred Woundcare -Consulted Surgery, Dr. Masters, appreciate recommendations #Hyperglycemia #Diabetes Mellitus Type 2, non insulin dependent -HbA1c: 11.6 -On admission, Glucose: 292 -Home medication of Metformin Plan: -Insulin Sliding Scale -On Insulin Lispro 7units SC AC -On Insulin Degludec 10unit qd Disposition: Medsurg Diet: Low carb consistent diet GI prophylaxis: None DVT prophylaxis: Heparin 5000 units sc q12hr Code: FULL Assessment and plan discussed with my attending physician Dr. Winslow and Dr. Campa (PGY-2) Dr. Bellamy (PGY-1) - Internal medicine resident Attending Provider Attestation/Addendum I or my resident physicians have discussed care with the ED physician and I have made the decision to admit. I have discussed and was present for the essential components of the history, physical examination, diagnosis, and treatment plan with the resident. I agree with the patient's care as documented by the resident and amended herein by me. Brayden Winslow DO. Although this document has been carefully reviewed, there may still be some phonetic and other typographical errors. These errors are purely grammatical due to imperfections in the software program and should not be construed in any way to compromise the substance of the patient's medical care during this visit. Patient seen and evaluated in the ED. In short, 34-year-old male with a significant past medical history of uncontrolled type 2 diabetes, presented to the ED for left foot pain and swelling which began approximately 4 to 5 days prior to admission. Patient noticed rapidly spreading redness from his fourth toe all the way up to the mid dorsal surface of his foot. He also endorsed fell odor with purulent material between his 4th and 5th toes. However no specific drainage was observed during our examination. In the ED, vital signs were stable, patient was afebrile. Significant labs include a normal WBC, hemoglobin slightly low at 13.3 however normal MCV, ESR elevated at 67, CMP significant for an elevated CRP and a glucose of 292. UA demonstrating 4+ glucose, 1+ ketones 1+ blood. A foot x-ray was performed demonstrating soft tissue swelling around the fourth digit with no severo cortical bone destruction noted, ankle x-ray was unremarkable. Of note A1c performed today 11.6. At this time patient will be admitted to [facility] for diabetic foot infection, patient started on broad-spectrum antibiotics to include cefepime, vancomycin and Flagyl. MRI of the left foot was ordered and pending. General surgery also consulted for any potential debridement which may be needed especially on the fourth toe. Patient started on basal bolus insulin and counseled on the necessity of getting his diabetes under control. Wound care also consulted
[2025-01-17] MEDS: PIPER/TAZO 3.375 GM PREMIX 3.375 GM/50 ML BAG IV (15:43)
[2025-01-17] MEDS: INSULIN DEGLUDEC 5 UNIT/0.05 ML (PER 5 UNITS) 10 UNIT SC (15:46)
[2025-01-17 16:32] VITALS: BP 138/83; PULSE 73; RESP 18; TEMP 36.8; O2SAT 99
[2025-01-17] MEDS: CEFEPIME INJ 2 GM in SODIUM CHLORIDE 0.9% (Popper) 50 ML IV ×2 (16:39→22:06)
--- NOTE | 2025-01-17 16:54 | PC.SS ---
Patient Arnie Dumont is a 34 Year old male admitted for Cellulitis. SS met with patient at bedside to discuss discharge plan and verify demographic information. Patient appeared to be alert and oriented to place time and situation. Patient reports his sister, Ciara Dumont is his surrogate decision maker, [phone]. Patient reports he is diabetic and prior to admission he was not utilizing any source of DME to assist with ambulation. Patient is angelina to perform ADL's independently. Patient's PCP is Yann Sun. Patient reports at time of discharge he would like to return back home. Family will provide transportation. Discharge plan: Home Next of kin: Sister, Ciara Dumont [phone]
[2025-01-17] MEDS: Vancomycin Inj 1,000 MG in SODIUM CHLORIDE 0.9% 250 ML 250 ML 150 MG IV (18:06)
--- NOTE | 2025-01-17 18:12 | PC.NURSE ---
called Dr. Harding about 2 Lispro orders, Dr. Harding states to give Lispro 7 units and do not give the other Lispro order. Informed Dr. Harding that pt. did eat dinner.
[2025-01-17] MEDS: INSULIN LISPRO (AdmeLOG) 1 UNIT/0.01 ML UNIT 7 UNIT SC (18:15)
[2025-01-17 18:30] VITALS: BP 148/91; PULSE 91; RESP 16; TEMP 37.4; O2SAT 96
--- NOTE | 2025-01-17 18:35 | PC.NURSE ---
Report received from Ginny YUAN at [phone]
--- NOTE | 2025-01-17 18:57 | PC.NURSE ---
pt came on the med surg floor at [phone]
--- NOTE | 2025-01-17 19:39 | PD.SURCONS ---
HPI Consult details History of present illness: 34M with DMII who presented to ER with left foot pain, swelling and erythema. Pt reports symptoms began four days ago, he came to ER yesterday and was planned for admission however needed to make arrangements with work so left AMA and returned today. He notes that even since yesterday the erythema worsened. PMH: DMII (pt admits he does not take his medicine) PSHx: None Meds: Insulin, metformin (not used regularly) Allergies: NKDA Social hx: Occasional smoking Review of Systems Review of Systems ROS Unobtainable: All systems reviewed & no additional complaints except as documented Meds Home Medications and Allergies Home Medications ?Medication ?Instructions ?Recorded ?Confirmed ?Type insulin pump cartridge 05/13/17 05/13/17 History metformin 500 mg tablet 500 mg PO BID 05/13/17 05/13/17 History Allergies Allergy/AdvReac Type Severity Reaction Status Date / Time pollen extracts Allergy Severe Swelling Verified 01/17/25 11:44 of Lip/Tongue/Throat Exam Vital Signs Temp Pulse Resp BP Pulse Ox O2 Del Method 99.4 F 91 16 148/91 H 96 Room Air 01/17/25 18:30 01/17/25 18:30 01/17/25 18:30 01/17/25 18:30 01/17/25 18:30 01/17/25 18:30 Constitutional Constitutional: no acute distress Routine Respiratory Exam Respiratory: Present no resp distress Routine Extremities Exam Comments: left fourth toe with significant swelling and tenderness, with erythema extending proximally Results Results: Laboratory Laboratory results: results reviewed Results: Imaging Imaging narrative: xray reviewed Assessment & Plan Plan 34M with DMII (A1c 11.6) presenting with left foot cellulitis and abscess of the 4th toe. I explained that incision and drainage is a necessary first step but that if his signs/symptoms worsen he may eventually require amputation. Pt expressed understanding and agrees to proceed NPO after MN for incision and drainage of left foot abscess tomorrow 01/18 at 8am
[2025-01-17 20:22] VITALS: BMI 29.2
[2025-01-17 20:27] VITALS: BP 120/85; PULSE 96; RESP 18; TEMP 37; O2SAT 97
[2025-01-17] MEDS: HEPARIN SOD INJ 5000 UNIT/ML VIAL SC (22:05)
[2025-01-17] MEDS: INSULIN LISPRO (AdmeLOG) 1 UNIT/0.01 ML UNIT SC (22:52)
[2025-01-17] MEDS: VANCOMYCIN/D5W 1,250 MG IVPB 250 ML 125 MG IV (22:52)
[2025-01-18] VITALS (13 sets, daily range): BP systolic 100–131; BP diastolic 62–91; PULSE 67–94; RESP 10–99; TEMP 36.4–38; O2SAT 94–100
--- NOTE | 2025-01-18 | XR_ITS ---
Examination: MRI left foot, without contrast Date and time of exam: January 18, 2025, 10:50 a.m. INDICATIONS: Foot redness swelling and pain centered over the left fourth toe beginning January 17, redness spreading to the fifth toe swelling dorsum of the foot Technique: Multiple axial sagittal and coronal images of the left foot have been obtained with the Siemens high-resolution 1.5 Dary MRI scanner. Images obtained include T2-weighted fat-suppressed sagittal sections, TR 3500, TE 46, T2 weighted coronal fat suppressed images, TR 3050, TE 84, T2-weighted transverse fat suppressed images, TR 3260, TE 63, proton density transverse images, TR 4720 TE 46, and T1 weighted coronal images, TR 560, TE 13. Findings: Prominent soft tissue swelling surrounding the fourth digit especially the proximal and middle phalanges Bone destruction involving the proximal and mid phalanges fourth digit, osteomyelitis Metatarsals are intact Prominent edema in the dorsum of the foot Mild thickening of the Achilles tendon Mild plantar fasciitis IMPRESSION: Osteomyelitis proximal and middle phalanges fourth digit
[2025-01-18] MEDS: CEFEPIME INJ 2 GM in SODIUM CHLORIDE 0.9% (Popper) 50 ML IV ×3 (05:18→20:59)
[2025-01-18 05:29] LABS: Basophils # (Auto) 0.0 Thou/mm3 (0.0-0.2); Basophils % (Auto) 1 % (0-2.5); Eosinophils # (Auto) 0.2 Thou/mm3 (0.0-0.5); Eosinophils % (Auto) 3 % (0-10); Hematocrit 34.9 % (41.0-53.0); Hemoglobin 12.0 g/dL (13.5-16.0); Immature Granulocytes Auto 0.01 Thou/mm3 (0.00-0.00); Lymphocytes # (Auto) 1.3 Thou/mm3 (1.0-4.8); Lymphocytes % (Auto) 21 % (10-50); Mean Corpuscular HGB Conc 34.4 g/dl (31.0-37.0); Mean Corpuscular Hemoglobin 30.0 pg (25.0-35.0); Mean Corpuscular Volume 87 fL (80-100); Monocytes # (Auto) 0.6 Thou/mm3 (0.0-0.8); Monocytes % (Auto) 9 % (0-12); Neutrophils # (Auto) 4.2 Thou/mm3 (1.8-7.7); Neutrophils % (Auto) 67 % (37-80); Nucleated Red Blood Cell # 0.00 Thou/mm3 (0.00-0.00); Nucleated Red Blood Cell % 0 /100 WBC (0); Platelet Count 167 Thou/mm3 (140-440); RDW Standard Deviation 37.8 fL (35.1-43.9); Red Blood Count 4.00 Miln/mm3 (4.50-5.90); White Blood Count 6.3 Thou/mm3 (3.8-10.6)
[2025-01-18 06:10] LABS: Alanine Aminotransferase 16 U/L (10-49); Albumin, Serum 3.8 gm/dL (3.5-5.0); Albumin/Globulin Ratio 1.5 (1.2-2.2); Alkaline Phosphatase 85 U/L (46-116); Anion Gap 8 (7-16); Aspartate Amino Transferase 14 U/L (0-34); BUN/Creatinine Ratio 16 Ratio (12-20); Bilirubin,Total 0.4 mg/dL (0.3-1.2); Blood Urea Nitrogen 16 mg/dL (9-23); Calcium 8.9 mg/dL (8.3-10.6); Calcium (Corrected) 9.1 mg/dL (8.5-10.1); Carbon Dioxide 27.6 mMol/L (20.0-31.0); Chloride 103 mMol/L (98-107); Creatinine (Component) 1.0 mg/dL (0.6-1.3); Estimated Creatinine Clearance 107.1 mL/min (>60); Globulin 2.6 gm/dL (2.3-3.5); Glucose 253 mg/dL (74-106); Magnesium 1.6 mg/dL (1.6-2.6); Osmolality,Calculated 287 (275-295); Phosphorous 3.5 mg/dL (2.4-5.1); Potassium 3.8 mMol/L (3.4-5.1); Sodium 139 mMol/L (136-145); Total Protein 6.4 gm/dL (5.7-8.2); eGFR > 60 See Note
--- NOTE | 2025-01-18 08:42 | PD.SUROPNT ---
Date of Procedure 01/18/25 Pre Op Diagnosis Left fourth toe abscess with cellulitis Post Op Diagnosis Same Procedure Incision and drainage of left fourth toe abscess Findings Left 4th toe containing pus Procedure Description After discussion of risks and benefits, patient was brought to the operating room and general anesthesia was induced. He was prepped and draped in usual sterile fashion. After timeout the area of most fluctuance on the anterior surface of the fourth toe was incised with a #15 blade in a vertical fashion. There was immediate return of pus from which a culture was taken. The wound was probed for loculations and approximately 15 cc of pus was expressed. The wound was irrigated with Betadine, hydrogen peroxide and saline. On the plantar surface of the toe there was already an ulceration which did connect to this new incision and this was also irrigated. There was some necrotic skin which was bluntly debrided to the level of subcutaneous tissue. The wound was irrigated with saline and there was no bleeding. The wounds were packed with quarter inch iodoform packing and covered with fluffs and then wrapped in Kerlix. Patient was extubated and brought to PACU in stable condition Pathology / specimen Other (Left fourth toe abscess culture) Estimated Blood Loss 20 Surgeon Rosalee Masters MD Surgical Staff Operation Date: 01/18/25 08:30 <No data on this case meets the specified criteria>
--- NOTE | 2025-01-18 08:47 | SUR.PHASEI ---
Pt. arrived to recovery via gurney, eyes closed, oral airway in place, pt. receiving 6 liters 02 via oxymask, VSS, lung sounds diminished, retracting and abdominal breathing noted, jaw thrust performed, dressing to left foot, CDI, cap refill to bashir great toes <2 seconds, pedal pulses present, faint on left foot, report received from [place] YUAN and Kahlil XAVIER.
--- NOTE | 2025-01-18 09:21 | SUR.PHASEI ---
Called and gave report on pt. s/p surgery to Izabella YUNA on M/S unit. Pt. is sitting up tolerating water, no c/o pain or nausea at this time.
--- NOTE | 2025-01-18 09:27 | ESPR_ITS ---
<Statement entered by Pato Campa MD - 01/18/25 15:14> Patient seen and examined at bedside. I discussed and supervised with the automotive internet sales consultant physician who took care of this patient. I personally saw and examined the patient. I agree with most of the assessment and plan. Plan of care discussed with attending Dr. Villalobos. Pato Campa MD PGY-2 Documentation for date of: 01/18/25 Subjective Subjective Interval history: On 01/18, patient received incision and drainage of abscess in anterior surface of the fourth toe. About 15 cc of pus was drained and a culture was taken. There were some necrotic skin that has been debrided to the level of subcutaneous tissue. Blood culture(01/16) showed no growth for 24 hours. Urine culture still pending. WBC count is normal 6.3. Overnight patient had low-grade fever 100.4 F. Currently patient is afebrile 97.6 F current bedside glucose level is 236. 7 units of insulin lispro was given on sliding scale. Increased insulin degludec from 10 unit to 15 units. Exam Vital Signs Temp Pulse Resp BP Pulse Ox O2 Del Method O2 Flow Rate 97.6 F 94 13 128/85 H 96 Room Air 6 01/18/25 09:17 01/18/25 09:17 01/18/25 09:17 01/18/25 09:17 01/18/25 09:17 01/18/25 04:00 01/18/25 09:07 Narrative Exam General: No acute distress, well nourished, AAO x3 Eye: PERRL, EOMI, normal conjunctiva, no scleral icterus HENT: Normocephalic, atraumatic, hearing intact to conversation at normal volume, moist oral mucosa Neck: Supple, non-tender, no JVD, no lymphadenopathy Lungs: Non-labored respirations, symmetric chest rise, Clear to auscultate bilaterally, No wheezing, rhonchi, crackles Heart: Peripheral pulses intact bilaterally, Regular Rate and Rhythm. Abdomen: Soft, non-tender, non-distended, no palpable masses Musculoskeletal: Normal range of motion and strength Skin: left 4th and 5th toe erythema, swelling, amaral discoloration in between toes. Visible redness on left dorsum of foot. Psychiatric: Cooperative, appropriate mood and affect, Awake and alert, not agitated Neuro: Cranial nerves II-XII grossly intact. Strength 5/5 throughout. Sensations intact to light touch. Objective Labs 01/19/25 04:20 01/19/25 04:20 Labs: Laboratory Results - last 24 hr 01/17/25 01/18/25 12:10 04:49 WBC 7.6 6.3 RBC 4.48 L 4.00 L Hgb 13.3 L 12.0 L Hct 39.9 L 34.9 L MCV 89 87 MCH 29.7 30.0 MCHC 33.3 34.4 RDW Std Deviation 38.5 37.8 Plt Count 166 167 Neut % (Auto) 80 67 Lymph % (Auto) 12 21 Harris % (Auto) 7 9 Eos % (Auto) 1 3 Baso % (Auto) 0 1 Neut # (Auto) 6.0 4.2 Lymph # (Auto) 0.9 L 1.3 Harris # (Auto) 0.5 0.6 Eos # (Auto) 0.1 0.2 Baso # (Auto) 0.0 0.0 Immature Gran # (Auto) 0.01 H 0.01 H Absolute Nucleated RBC 0.00 0.00 Immature Gran % 0 0 Nucleated RBC % 0 0 ESR 67 H Sodium 137 139 Potassium 4.1 D 3.8 Chloride 102 103 Carbon Dioxide 28.1 27.6 Anion Gap 7 8 BUN 13 16 Creatinine 1.0 1.0 Estim Creat Clear Calc 105.7 107.1 eGFR > 60 > 60 BUN/Creatinine Ratio 13 16 Glucose 292 H D 253 H Calculated Osmolality 284 287 Lactic Acid 1.2 Calcium 9.4 8.9 Corrected Calcium 9.4 9.1 Phosphorus 3.5 Magnesium 1.6 Total Bilirubin 0.9 0.4 D AST 15 14 ALT 19 16 Alkaline Phosphatase 92 85 C-Reactive Prot, Quant 8.0 H Total Protein 7.4 6.4 Albumin 4.4 3.8 D Globulin 3.0 2.6 Albumin/Globulin Ratio 1.5 1.5 Procalcitonin 0.26 Ur Collection Type Clean Catch Urine Color Yellow Urine Clarity Hazy Urine pH 6.5 Ur Specific [place] 1.049 H Urine Protein 2+ A Urine Glucose (UA) 4+ A Urine Ketones 1+ A Urine Blood 1+ A Urine Nitrite Negative Urine Bilirubin Negative Urine Urobilinogen (Auto) 4.0 Ur Leukocyte Esterase Negative Urine RBC 60 H Urine WBC 1 Ur Squamous Epith Cells 0 Urine Bacteria Rare Quality Measures Quality Measures none Assessment & Plan Assessment Current Active Medications: Generic Name Dose Route Start Last Admin Trade Name Freq PRN Reason Stop Dose Admin Acetaminophen 650 mg 01/17/25 15:20 Acetaminophen 325 Mg Tablet PO 02/16/25 15:09 Q6H PRN PAIN SCALE 1-3 (mild Albuterol/Ipratropium 3 ml 01/18/25 08:37 Albuterol/Ipratropium (Duoneb) Rt Syeda 3 Ml Nebu INH 02/17/25 08:36 Q4HRRT PRN SHORTNESS OF BREATH Dextrose 25 ml 01/17/25 15:27 Dextrose 50%-Water Inj 50 Ml Syringe IV 02/16/25 15:26 Q15MIN PRN BG 50-70 responsive npo pt Dextrose 50 ml 01/17/25 15:27 Dextrose 50%-Water Inj 50 Ml Syringe IV 02/16/25 15:26 Q15MIN PRN BG <50 OR BG <70 & pt unresponsive Fentanyl Citrate 50 mcg 01/18/25 08:37 Fentanyl Cit Inj 50 Mcg/Ml Amp 2ml IVP 01/18/25 10:37 Q5M PRN PAIN SCALE 4-6 (Moderate Glucagon 1 mg 01/17/25 15:27 Glucagon Inj 1 Mg Vial IM Q15MIN PRN BG <70, and no IV access Heparin Sodium (Porcine) 5,000 unit 01/17/25 21:00 01/18/25 08:04 Heparin Sod Inj 5000 Unit/Ml Vial SC 01/31/25 20:59 Not Given Q12HR MARKUS Hydralazine HCl 10 mg 01/18/25 08:37 Hydralazine Inj 20 Mg/Ml Vial IVP 01/18/25 10:37 X1 ONE Hydromorphone HCl 0.5 mg 01/18/25 08:37 Hydromorphone Inj 2 Mg/Ml Vial IVP 01/18/25 10:37 Q10MIN PRN severe pain 7-10 Cefepime HCl 2 gm/ Sodium 50 mls @ 100 mls/hr 01/17/25 16:01 01/18/25 05:18 Chloride IV 01/24/25 16:00 100 mls/hr Q8HR [facility] Administration Vancomycin HCl 200 mls @ 120 mls/hr 01/18/25 10:00 Vancomycin/Water 1gm Ivpb IV 01/25/25 09:59 BID@1000,2200 [facility] Protocol Promethazine HCl 12.5 mg/ 50.5 mls @ 2.5 mls/min 01/18/25 08:37 Sodium Chloride IV 01/18/25 10:37 Q30M PRN NAUSEA Protocol Ibuprofen 400 mg 01/17/25 15:25 Ibuprofen Tab 400 Mg Tablet PO 02/16/25 15:09 Q6HR PRN Fever > 100.4 Insulin Degludec 10 unit 01/17/25 15:30 01/18/25 08:04 Insulin Degludec 5 Unit/0.05 Ml (Per 5 Units) SC 02/16/25 15:29 Not Given QDAY [facility] Insulin Human Lispro 7 unit 01/17/25 17:00 01/18/25 07:21 Insulin Lispro (Admelog) 1 Unit/0.01 Ml Unit SC 02/16/25 16:59 Not Given AC [facility] Insulin Human Lispro 0 unit 01/17/25 22:30 01/18/25 07:22 Insulin Lispro (Admelog) 1 Unit/0.01 Ml Unit SC 02/16/25 22:29 Not Given ACHS [facility] Protocol Labetalol HCl 5 mg 01/18/25 08:37 Labetalol Inj 5 Mg/Ml Vial 20 Ml IVP 01/18/25 10:37 Q10MIN PRN SBP >180 DBP>100 or HR >100 Magnesium Oxide 400 mg 01/18/25 14:00 Magnesium Oxide 400 Mg Tablet PO 01/18/25 14:01 X1 ONE Protocol Metoprolol Tartrate 2.5 mg 01/18/25 08:37 Metoprolol Tartrate Inj 1 Mg/Ml Amp 5 Ml IVP 01/18/25 10:37 Q5M PRN HR >100 ' , max 6 doses . Hold if SBP< 100 mmhg Metronidazole 500 mg 01/17/25 18:34 01/18/25 05:24 Metronidazole 250 Mg Tablet PO 01/24/25 18:33 Not Given Q8HR [facility] Ondansetron HCl 4 mg 01/17/25 15:10 Ondansetron Inj 2 Mg/Ml Inj 2 Ml IVP 02/16/25 15:09 Q6H PRN NAUSEA OR VOMITING Protocol Oxycodone/Acetaminophen 1 tab 01/17/25 15:10 Oxycodone/Apap 5/325 Tablet PO 01/22/25 15:09 Q6H PRN PAIN SCALE 4-6 (Moderate Pharmacy Consult 1 each 01/18/25 09:00 Vancomycin Pharmacy To Dose 1 Each Each IV 02/17/25 08:59 QDAY MARKUS Plan Arnie Lee is 34y/o M with PMH of type 2 diabetes, present to ED on 01/17/2025 for left 4th toe swelling that started about 4 days ago. The patient reported picking at callouses on the left fourth toe. Patient was admitted for management of cellulitis. #Osteomyelitis proximal and middle phalanges fourth digit #Cellulitis of left 4th and 5th toe #Leukocytois- Resoving -Presented with white discoloration of dorsal aspect of the left 4th toe, and the redness spread to the fifth toe. Erythema in dorsum aspect of the left foot, swelling of the lateral side of left foot with presence of a foul odor and purulent material between the 4th and 5th toes, although no active drainage was observed. -Need to rule out necrotizing fascittis. -On admission, WBC:10.6, and CRP:5.3 -Ankle XR (01/17/2025): No ankle fracture or dislocation -Foot XR (01/17/2025): Prominent soft tissue swelling about the fourth digit although no severo cortical bone destruction -MRI of Left Foot without contrast (01/18/2025): Osteomyelitis proximal and middle phalanges fourth digit -On 01/18, patient received incision and drainage of abscess in anterior surface of the fourth toe. About 15 cc of pus was drained and a culture was taken. There were some necrotic skin that has been debrided to the level of subcutaneous tissue. -Blood culture(01/16) showed no growth for 24 hours. Plan: -On IV Cefepime 2g q8hr (01/17-) and IV Vancomycin (01/17-), PO Metronidazole 500mg q8hr (01/17-) -Blood Cx pending -MRI w/o contrast of left foot pending. -Referred Woundcare -Consulted Surgery, Dr. Masters, appreciate recommendations #Hyperglycemia #Diabetes Mellitus Type 2, non insulin dependent -HbA1c: 11.6 -On admission, Glucose: 292 -Home medication of Metformin Plan: -Insulin Sliding Scale -On Insulin Lispro 7units SC AC -On Insulin Degludec 15unit qd Disposition: Medsurg Diet: Low carb consistent diet GI prophylaxis: None DVT prophylaxis: Heparin 5000 units sc q12hr Code: FULL Assessment and plan discussed with my attending physician Dr. Villalobos and Dr. Campa (PGY-2) Dr. Bellamy (PGY-1) - Internal medicine resident Attending Provider Attestation/Addendum I have seen and examined the patient. I was physically present for the [place] portions of the services provided including history, physical exam, diagnosis, treatment plans and orders. I agree with assessment and plan of care as documented by residents. Even though this this note was carefully revised there may still be minor errors in pumper hand due to voice recognition software. Abe Villalobos MD
--- NOTE | 2025-01-18 09:30 | SUR.PHASEI ---
Pt. transferred to room 358 via PASQUALE dumont, dressing to left foot CDI, IV saline locked, Izabella YUAN assumed care of pt.
[2025-01-18] MEDS: VANCOMYCIN/WATER 1GM IVPB 200 ML IV ×2 (10:30→21:34)
[2025-01-18] MEDS: INSULIN LISPRO (AdmeLOG) 1 UNIT/0.01 ML UNIT 7 UNIT SC ×2 (11:41→16:50)
[2025-01-18] MEDS: INSULIN LISPRO (AdmeLOG) 1 UNIT/0.01 ML UNIT SC ×3 (11:41→20:50)
[2025-01-18] MEDS: MAGNESIUM OXIDE 400 MG TABLET PO (13:28)
[2025-01-18] MEDS: INSULIN LISPRO (AdmeLOG) 1 UNIT/0.01 ML UNIT 5 UNIT SC (16:49)
[2025-01-18] MEDS: INSULIN DEGLUDEC 5 UNIT/0.05 ML (PER 5 UNITS) 15 UNIT SC (20:49)
[2025-01-18] MEDS: HEPARIN SOD INJ 5000 UNIT/ML VIAL SC (20:49)
[2025-01-19] VITALS (8 sets, daily range): BP systolic 120–144; BP diastolic 68–91; PULSE 64–83; RESP 16–99; TEMP 36.5–37.2; O2SAT 95–99; BMI 29.2
[2025-01-19] MEDS: INSULIN LISPRO (AdmeLOG) 1 UNIT/0.01 ML UNIT 5 UNIT SC (02:35)
[2025-01-19] MEDS: CEFEPIME INJ 2 GM in SODIUM CHLORIDE 0.9% (Popper) 50 ML IV (05:27)
[2025-01-19 05:37] LABS: Basophils # (Auto) 0.0 Thou/mm3 (0.0-0.2); Basophils % (Auto) 0 % (0-2.5); Eosinophils # (Auto) 0.0 Thou/mm3 (0.0-0.5); Eosinophils % (Auto) 0 % (0-10); Hematocrit 35.8 % (41.0-53.0); Hemoglobin 12.2 g/dL (13.5-16.0); Immature Granulocytes Auto 0.02 Thou/mm3 (0.00-0.00); Lymphocytes # (Auto) 1.4 Thou/mm3 (1.0-4.8); Lymphocytes % (Auto) 15 % (10-50); Mean Corpuscular HGB Conc 34.1 g/dl (31.0-37.0); Mean Corpuscular Hemoglobin 29.7 pg (25.0-35.0); Mean Corpuscular Volume 87 fL (80-100); Monocytes # (Auto) 0.6 Thou/mm3 (0.0-0.8); Monocytes % (Auto) 7 % (0-12); Neutrophils # (Auto) 7.4 Thou/mm3 (1.8-7.7); Neutrophils % (Auto) 78 % (37-80); Nucleated Red Blood Cell # 0.00 Thou/mm3 (0.00-0.00); Nucleated Red Blood Cell % 0 /100 WBC (0); Platelet Count 196 Thou/mm3 (140-440); RDW Standard Deviation 37.7 fL (35.1-43.9); Red Blood Count 4.11 Miln/mm3 (4.50-5.90); White Blood Count 9.6 Thou/mm3 (3.8-10.6)
[2025-01-19 06:05] LABS: Alanine Aminotransferase 16 U/L (10-49); Albumin, Serum 3.8 gm/dL (3.5-5.0); Albumin/Globulin Ratio 1.5 (1.2-2.2); Alkaline Phosphatase 86 U/L (46-116); Anion Gap 10 (7-16); Aspartate Amino Transferase 15 U/L (0-34); BUN/Creatinine Ratio 17 Ratio (12-20); Bilirubin,Total 0.4 mg/dL (0.3-1.2); Blood Urea Nitrogen 15 mg/dL (9-23); Calcium 9.0 mg/dL (8.3-10.6); Calcium (Corrected) 9.2 mg/dL (8.5-10.1); Carbon Dioxide 26.0 mMol/L (20.0-31.0); Chloride 104 mMol/L (98-107); Creatinine (Component) 0.9 mg/dL (0.6-1.3); Estimated Creatinine Clearance 119.0 mL/min (>60); Globulin 2.6 gm/dL (2.3-3.5); Glucose 277 mg/dL (74-106); Magnesium 1.8 mg/dL (1.6-2.6); Osmolality,Calculated 290 (275-295); Phosphorous 4.0 mg/dL (2.4-5.1); Potassium 4.0 mMol/L (3.4-5.1); Sodium 140 mMol/L (136-145); Total Protein 6.4 gm/dL (5.7-8.2); eGFR > 60 See Note
[2025-01-19] MEDS: INSULIN LISPRO (AdmeLOG) 1 UNIT/0.01 ML UNIT 7 UNIT SC (07:52)
[2025-01-19] MEDS: INSULIN LISPRO (AdmeLOG) 1 UNIT/0.01 ML UNIT SC ×2 (07:53→11:55)
--- NOTE | 2025-01-19 08:31 | ESPR_ITS ---
<Statement entered by Aury Javed MD - 01/20/25 19:17> Patient was seen and examined at bedside. I agree on the assessment and plan on this note as documented by resident Sandra Bellamy DO PGY1. 34-year-old male with past medical history as below admitted for cellulitis/fluctuant abscess left 4th and 5th toe, osteomyelitis proximal and middle phalanges fourth digit, patient underwent I&D for anterior surface of fourth toe with 15 cc of pus that was drained, cultures are pending currently. Patient will require infectious disease consultation prior to discharge and possible PICC line placement for IV antibiotics to complete course of treatment for osteomyelitis. Otherwise patient's hemoglobin A1c is 11.6, insulin regimen was adjusted accordingly. Will try to maintain inpatient blood glucose goal 140-180. Case discussed with attending Dr. Abe Javed MD PGY-2 Documentation for date of: 01/19/25 Subjective Subjective Interval history: Patient's status post incision and drainage (01/18) from general surgery Dr. Masters for the abscess in his anterior surface of the left fourth toe which drained about 15 cc of pus with a culture taken. Currently waiting for culture result of the abscess. Gram stain result of the abscess shows 4+ WBCs and 2+ GPCs. Blood culture showed no growth for 48 hours. Urine culture still pending. Per General Surgery, Amputation of the left 4th toe is not indicated due to salvagable condition of the toe. Discontinued IV Cefepime 2g q8hr, IV Vancomycin, PO Metronidazole 500mg q8hr. S tarted on IV ceftriaxone 2g qd and PO doxycycline 100mg bid Consulted ID, Dr. Flores, for recommendations for IV antibiotics on discharge. P ending PICC line placement Overnight patient received 15 units of insulin degludec, insulin lispro 5 units SC x 1, Premeal insulin lispro 7 units and 10 unit of insulin lispro on sliding scale insulin. Patient bedside glucose was 248. Increased insulin levels: P remeal Insulin lispro 9units, Insulin Degludec 25 units. No Overnight events. Labs reviewed and patient examined at the bedside. Denies pain on his left toes and foot, chest pain, palpation, SOB, abdominal pain, N/V, fevers or chills. Exam Vital Signs Temp Pulse Resp BP Pulse Ox O2 Del Method O2 Flow Rate 97.8 F 77 16 144/91 H 98 Room Air 3 01/19/25 08:00 01/19/25 08:00 01/19/25 08:00 01/19/25 08:00 01/19/25 08:00 01/19/25 08:00 01/18/25 16:00 Narrative Exam General: No acute distress, well nourished, AAO x3 Eye: PERRL, EOMI, normal conjunctiva, no scleral icterus HENT: Normocephalic, atraumatic, hearing intact to conversation at normal volume, moist oral mucosa Neck: Supple, non-tender, no JVD, no lymphadenopathy Lungs: Non-labored respirations, symmetric chest rise, Clear to auscultate bilaterally, No wheezing, rhonchi, crackles Heart: Peripheral pulses intact bilaterally, Regular Rate and Rhythm. Abdomen: Soft, non-tender, non-distended, no palpable masses Musculoskeletal: Normal range of motion and strength Skin: left 4th and 5th toe covered with fluffs. No worsening signs of erythema or drainage. Psychiatric: Cooperative, appropriate mood and affect, Awake and alert, not agitated Neuro: Cranial nerves II-XII grossly intact. Strength 5/5 throughout. Sensations intact to light touch. Objective Labs 01/20/25 04:44 01/20/25 04:44 Labs: Laboratory Results - last 24 hr 01/19/25 04:20 WBC 9.6 D RBC 4.11 L Hgb 12.2 L Hct 35.8 L MCV 87 MCH 29.7 MCHC 34.1 RDW Std Deviation 37.7 Plt Count 196 Neut % (Auto) 78 Lymph % (Auto) 15 [place] % (Auto) 7 Eos % (Auto) 0 Baso % (Auto) 0 Neut # (Auto) 7.4 Lymph # (Auto) 1.4 [place] # (Auto) 0.6 Eos # (Auto) 0.0 Baso # (Auto) 0.0 Immature Gran # (Auto) 0.02 H Absolute Nucleated RBC 0.00 Immature Gran % 0 Nucleated RBC % 0 Sodium 140 Potassium 4.0 Chloride 104 Carbon Dioxide 26.0 Anion Gap 10 BUN 15 Creatinine 0.9 Estim Creat Clear Calc 119.0 eGFR > 60 BUN/Creatinine Ratio 17 Glucose 277 H Calculated Osmolality 290 Calcium 9.0 Corrected Calcium 9.2 Phosphorus 4.0 Magnesium 1.8 Total Bilirubin 0.4 AST 15 ALT 16 Alkaline Phosphatase 86 Total Protein 6.4 Albumin 3.8 Globulin 2.6 Albumin/Globulin Ratio 1.5 Quality Measures Quality Measures none Assessment & Plan Assessment Current Active Medications: Generic Name Dose Route Start Last Admin Trade Name Freq PRN Reason Stop Dose Admin Acetaminophen 650 mg 01/17/25 15:20 Acetaminophen 325 Mg Tablet PO 02/16/25 15:09 Q6H PRN PAIN SCALE 1-3 (mild Albuterol/Ipratropium 3 ml 01/18/25 08:37 Albuterol/Ipratropium (Duoneb) Rt Syeda 3 Ml Nebu INH 02/17/25 08:36 Q4HRRT PRN SHORTNESS OF BREATH Dextrose 25 ml 01/17/25 15:27 Dextrose 50%-Water Inj 50 Ml Syringe IV 02/16/25 15:26 Q15MIN PRN BG 50-70 responsive npo pt Dextrose 50 ml 01/17/25 15:27 Dextrose 50%-Water Inj 50 Ml Syringe IV 02/16/25 15:26 Q15MIN PRN BG <50 OR BG <70 & pt unresponsive Glucagon 1 mg 01/17/25 15:27 Glucagon Inj 1 Mg Vial IM Q15MIN PRN BG <70, and no IV access Heparin Sodium (Porcine) 5,000 unit 01/17/25 21:00 01/18/25 20:49 Heparin Sod Inj 5000 Unit/Ml Vial SC 01/31/25 20:59 5,000 unit Q12HR MARKUS Administration Cefepime HCl 2 gm/ Sodium 50 mls @ 100 mls/hr 01/17/25 16:01 01/19/25 05:27 Chloride IV 01/24/25 16:00 100 mls/hr Q8HR MARKUS Administration Vancomycin HCl 200 mls @ 120 mls/hr 01/18/25 10:00 01/18/25 21:34 Vancomycin/Water 1gm Ivpb IV 01/25/25 09:59 120 mls/hr BID@1000,2200 MARKUS Administration Protocol Ibuprofen 400 mg 01/17/25 15:25 Ibuprofen Tab 400 Mg Tablet PO 02/16/25 15:09 Q6HR PRN Fever > 100.4 Insulin Degludec 15 unit 01/18/25 19:05 01/18/25 20:49 Insulin Degludec 5 Unit/0.05 Ml (Per 5 Units) SC 02/17/25 19:04 15 unit HS MARKUS Administration Insulin Human Lispro 7 unit 01/17/25 17:00 01/19/25 07:52 Insulin Lispro (Admelog) 1 Unit/0.01 Ml Unit SC 02/16/25 16:59 7 unit AC MARKUS Administration Insulin Human Lispro 0 unit 01/18/25 18:59 01/19/25 07:53 Insulin Lispro (Admelog) 1 Unit/0.01 Ml Unit SC 02/16/25 22:29 4 unit ACHS MARKUS Administration Protocol Metronidazole 500 mg 01/17/25 18:34 01/19/25 05:27 Metronidazole 250 Mg Tablet PO 01/24/25 18:33 500 mg Q8HR MARKUS Administration Ondansetron HCl 4 mg 01/17/25 15:10 Ondansetron Inj 2 Mg/Ml Inj 2 Ml IVP 02/16/25 15:09 Q6H PRN NAUSEA OR VOMITING Protocol Oxycodone/Acetaminophen 1 tab 01/17/25 15:10 Oxycodone/Apap 5/325 Tablet PO 01/22/25 15:09 Q6H PRN PAIN SCALE 4-6 (Moderate Pharmacy Consult 1 each 01/18/25 09:00 01/18/25 10:05 Vancomycin Pharmacy To Dose 1 Each Each IV 02/17/25 08:59 Not Given QDAY MARKUS Plan Arnie Lee is 34y/o M with PMH of type 2 diabetes, present to ED on 01/17/2025 for left 4th toe swelling that started about 4 days ago. The patient reported picking at callouses on the left fourth toe. Patient was admitted for management of cellulitis. #Osteomyelitis proximal and middle phalanges fourth digit #Cellulitis of left 4th and 5th toe #Leukocytois- Resoving -Presented with white discoloration of dorsal aspect of the left 4th toe, and the redness spread to the fifth toe. Erythema in dorsum aspect of the left foot, swelling of the lateral side of left foot with presence of a foul odor and purulent material between the 4th and 5th toes, although no active drainage was observed. -Need to rule out necrotizing fascittis. -On admission, WBC:10.6, and CRP:5.3 -Ankle XR (01/17/2025): No ankle fracture or dislocation -Foot XR (01/17/2025): Prominent soft tissue swelling about the fourth digit although no severo cortical bone destruction -MRI of Left Foot without contrast (01/18/2025): Osteomyelitis proximal and middle phalanges fourth digit -On 01/18, patient received incision and drainage of abscess in anterior surface of the fourth toe. About 15 cc of pus was drained and a culture was taken. There were some necrotic skin that has been debrided to the level of subcutaneous tissue. -Per General Surgery, Amputation of the left 4th toe is NOT indicated due to salvagable condition of the toe. -Blood culture(01/16) showed no growth for 48 hours. -Gram stain result of the abscess shows 4+ WBCs and 2+ GPCs. -Discontinued IV Cefepime 2g q8hr (01/17-01/19) and IV Vancomycin (01/17-01/19), PO Metronidazole 500mg q8hr (01/17-01/19) Plan: -Started on IV ceftriaxone 2g qd (01/19-) and PO doxycycline 100mg bid (01/19-) -Referred Woundcare -Consulted Surgery, Dr. Masters, appreciate recommendations -Consulted ID, Dr. Flores, appreciate recommendations. -Pending Abscess culture result. -Pending Urine culture. #Hyperglycemia #Diabetes Mellitus Type 2, non insulin dependent -HbA1c: 11.6 -On admission, Glucose: 292 -Home medication of Metformin 01/19: Overnight patient received 15 units of insulin degludec, insulin lispro 5 units SC x 1, Premeal insulin lispro 7 units and 10 unit of insulin lispro on sliding scale insulin. Patient bedside glucose was 248. Plan: -Insulin Sliding Scale -Increased insulin levels: Premeal Insulin lispro 9units, Insulin Degludec 25 units. Disposition: Medsurg Diet: Low carb consistent diet GI prophylaxis: None DVT prophylaxis: Heparin 5000 units sc q12hr Code: FULL Assessment and plan discussed with my attending physician Dr. Villalobos and Dr. Javed (PGY-2) Dr. Bellamy (PGY-1) - Internal medicine resident Attending Provider Attestation/Addendum I have seen and examined the patient. I was physically present for the [place] portions of the services provided including history, physical exam, diagnosis, treatment plans and orders. I agree with assessment and plan of care as documented by residents. Even though this this note was carefully revised there may still be minor errors in pressure washer due to voice recognition software. bAe Villalobos MD
--- NOTE | 2025-01-19 09:02 | PC.SS ---
Follow up note: I & D drainage. On IV antibiotic. Pt possibly will require PICC line for jail IV antibiotic.
--- NOTE | 2025-01-19 09:35 | ESPR_ITS ---
Documentation for date of: 01/19/25 Subjective Subjective Interval history: Arnie Dumont is a 34 yo male s/p I&D of left 4th digit due to cellulitis day 1. He is feeling much better today, without pain, and he is feeling less swollen in his toe. Since the procedure, he has not complained of fevers, or chills, although he has not had a bowel movement yet. He was able to walk to the restroom without assistance. 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 MRI releaved osteomyelitis in LLE 4th digit proximal and middle phalanges. Exam Vital Signs Temp Pulse Resp BP Pulse Ox O2 Del Method O2 Flow Rate 97.8 F 77 16 144/91 H 98 Room Air 3 01/19/25 08:00 01/19/25 08:00 01/19/25 08:00 01/19/25 08:00 01/19/25 08:00 01/19/25 08:00 01/18/25 16:00 Constitutional Constitutional: no acute distress and cooperative Routine Respiratory Exam Respiratory: Present no resp distress Detailed Lower Extremity Exam Comments: Left foot dorsolateral erythema is significantly decreased compared to pre-op. Left 4th digit with incisions on anterior and plantar surfaces repacked. Absent tenderness when handling foot, with intact sensation. Objective Labs 01/19/25 04:20 01/19/25 04:20 Labs: Laboratory Results - last 24 hr 01/19/25 04:20 WBC 9.6 D RBC 4.11 L Hgb 12.2 L Hct 35.8 L MCV 87 MCH 29.7 MCHC 34.1 RDW Std Deviation 37.7 Plt Count 196 Neut % (Auto) 78 Lymph % (Auto) 15 [place] % (Auto) 7 Eos % (Auto) 0 Baso % (Auto) 0 Neut # (Auto) 7.4 Lymph # (Auto) 1.4 [place] # (Auto) 0.6 Eos # (Auto) 0.0 Baso # (Auto) 0.0 Immature Gran # (Auto) 0.02 H Absolute Nucleated RBC 0.00 Immature Gran % 0 Nucleated RBC % 0 Sodium 140 Potassium 4.0 Chloride 104 Carbon Dioxide 26.0 Anion Gap 10 BUN 15 Creatinine 0.9 Estim Creat Clear Calc 119.0 eGFR > 60 BUN/Creatinine Ratio 17 Glucose 277 H Calculated Osmolality 290 Calcium 9.0 Corrected Calcium 9.2 Phosphorus 4.0 Magnesium 1.8 Total Bilirubin 0.4 AST 15 ALT 16 Alkaline Phosphatase 86 Total Protein 6.4 Albumin 3.8 Globulin 2.6 Albumin/Globulin Ratio 1.5 Quality Measures Quality Measures none Assessment & Plan Assessment Current Active Medications: Generic Name Dose Route Start Last Admin Trade Name Bernyq PRN Reason Stop Dose Admin Acetaminophen 650 mg 01/17/25 15:20 Acetaminophen 325 Mg Tablet PO 02/16/25 15:09 Q6H PRN PAIN SCALE 1-3 (mild Albuterol/Ipratropium 3 ml 01/18/25 08:37 Albuterol/Ipratropium (Duoneb) Rt Syeda 3 Ml Nebu INH 02/17/25 08:36 Q4HRRT PRN SHORTNESS OF BREATH Dextrose 25 ml 01/17/25 15:27 Dextrose 50%-Water Inj 50 Ml Syringe IV 02/16/25 15:26 Q15MIN PRN BG 50-70 responsive npo pt Dextrose 50 ml 01/17/25 15:27 Dextrose 50%-Water Inj 50 Ml Syringe IV 02/16/25 15:26 Q15MIN PRN BG <50 OR BG <70 & pt unresponsive Glucagon 1 mg 01/17/25 15:27 Glucagon Inj 1 Mg Vial IM Q15MIN PRN BG <70, and no IV access Heparin Sodium (Porcine) 5,000 unit 01/17/25 21:00 01/18/25 20:49 Heparin Sod Inj 5000 Unit/Ml Vial SC 01/31/25 20:59 5,000 unit Q12HR MARKUS Administration Cefepime HCl 2 gm/ Sodium 50 mls @ 100 mls/hr 01/17/25 16:01 01/19/25 05:27 Chloride IV 01/24/25 16:00 100 mls/hr Q8HR MARKUS Administration Vancomycin HCl 200 mls @ 120 mls/hr 01/18/25 10:00 01/18/25 21:34 Vancomycin/Water 1gm Ivpb IV 01/25/25 09:59 120 mls/hr BID@1000,2200 MARKUS Administration Protocol Ibuprofen 400 mg 01/17/25 15:25 Ibuprofen Tab 400 Mg Tablet PO 02/16/25 15:09 Q6HR PRN Fever > 100.4 Insulin Degludec 15 unit 01/18/25 19:05 01/18/25 20:49 Insulin Degludec 5 Unit/0.05 Ml (Per 5 Units) SC 02/17/25 19:04 15 unit HS MARKUS Administration Insulin Human Lispro 7 unit 01/17/25 17:00 01/19/25 07:52 Insulin Lispro (Admelog) 1 Unit/0.01 Ml Unit SC 02/16/25 16:59 7 unit AC MARKUS Administration Insulin Human Lispro 0 unit 01/18/25 18:59 01/19/25 07:53 Insulin Lispro (Admelog) 1 Unit/0.01 Ml Unit SC 02/16/25 22:29 4 unit ACHS MARKUS Administration Protocol Metronidazole 500 mg 01/17/25 18:34 01/19/25 05:27 Metronidazole 250 Mg Tablet PO 01/24/25 18:33 500 mg Q8HR MARKUS Administration Ondansetron HCl 4 mg 01/17/25 15:10 Ondansetron Inj 2 Mg/Ml Inj 2 Ml IVP 02/16/25 15:09 Q6H PRN NAUSEA OR VOMITING Protocol Oxycodone/Acetaminophen 1 tab 01/17/25 15:10 Oxycodone/Apap 5/325 Tablet PO 01/22/25 15:09 Q6H PRN PAIN SCALE 4-6 (Moderate Pharmacy Consult 1 each 01/19/25 09:30 Vancomycin Pharmacy To Dose 1 Each Each IV 02/17/25 08:59 QDAY PRN PROTOCOL Additional Assessment: 34M s/p I&D of left 4th digit due to cellulitis day 1. He is doing very well post I&D, without pain or complaints. MRI revealed osteomyelitis of 4th digit proximal and middle phalanges. Dressing was changed today at 1000 with removal of small eschar about 2 cm alongside original incision. Due to salvagable condition of the toe, would not recommend amputation at this time. Will continue with IV antibiotics. Plan IV antibiotics, appreciate ID recs
[2025-01-19 09:40] LABS: Vancomycin,Trough 8.3 mcg/mL (5.0-10.0)
[2025-01-19] MEDS: MAGNESIUM OXIDE 400 MG TABLET PO (09:53)
[2025-01-19] MEDS: HEPARIN SOD INJ 5000 UNIT/ML VIAL SC ×2 (09:53→20:46)
[2025-01-19] MEDS: VANCOMYCIN/D5W 1,250 MG IVPB 250 ML 120 MG IV (10:25)
--- NOTE | 2025-01-19 11:28 | PC.NURSE ---
wound care done and education done and given by. DR. LINDSAY
[2025-01-19] MEDS: INSULIN LISPRO (AdmeLOG) 1 UNIT/0.01 ML UNIT 9 UNIT SC ×2 (11:54→17:37)
[2025-01-19] MEDS: cefTRIAXone/D5w 2gm 2 GM/50 ML BAG IV (12:35)
[2025-01-19] MEDS: ASCORBIC ACID 250 MG TABLET 500 MG PO (20:44)
[2025-01-19] MEDS: DOXYCYCLINE 100 MG TABLET PO (20:45)
[2025-01-19] MEDS: INSULIN DEGLUDEC 5 UNIT/0.05 ML (PER 5 UNITS) 25 UNIT SC (21:19)
[2025-01-20] VITALS (8 sets, daily range): BP systolic 113–135; BP diastolic 74–89; PULSE 66–82; RESP 16–98; TEMP 36.6–37.3; O2SAT 97–99
--- NOTE | 2025-01-20 04:22 | ESPR_ITS ---
Subjective Subjective Interval history: osteo by mri. plain xrays non diagnostic Exam Vital Signs Temp Pulse Resp BP Pulse Ox O2 Del Method O2 Flow Rate 99.1 F 66 17 124/81 99 Room Air 3 01/20/25 00:00 01/20/25 00:00 01/20/25 00:00 01/20/25 00:00 01/20/25 00:00 01/20/25 00:00 01/18/25 16:00 Narrative Exam cx pending. if circulation impaired then please check that issue out with orders. I can not see pt till tomorrow am at the earliest. Objective - Internal Medicine Labs 01/19/25 04:20 01/19/25 04:20 Labs: Laboratory Results - last 24 hr 01/19/25 01/19/25 04:20 08:00 WBC 9.6 D RBC 4.11 L Hgb 12.2 L Hct 35.8 L MCV 87 MCH 29.7 MCHC 34.1 RDW Std Deviation 37.7 Plt Count 196 Neut % (Auto) 78 Lymph % (Auto) 15 [place] % (Auto) 7 Eos % (Auto) 0 Baso % (Auto) 0 Neut # (Auto) 7.4 Lymph # (Auto) 1.4 [place] # (Auto) 0.6 Eos # (Auto) 0.0 Baso # (Auto) 0.0 Immature Gran # (Auto) 0.02 H Absolute Nucleated RBC 0.00 Immature Gran % 0 Nucleated RBC % 0 Sodium 140 Potassium 4.0 Chloride 104 Carbon Dioxide 26.0 Anion Gap 10 BUN 15 Creatinine 0.9 Estim Creat Clear Calc 119.0 eGFR > 60 BUN/Creatinine Ratio 17 Glucose 277 H Calculated Osmolality 290 Calcium 9.0 Corrected Calcium 9.2 Phosphorus 4.0 Magnesium 1.8 Total Bilirubin 0.4 AST 15 ALT 16 Alkaline Phosphatase 86 Total Protein 6.4 Albumin 3.8 Globulin 2.6 Albumin/Globulin Ratio 1.5 Vancomycin Trough 8.3 Assessment & Plan A&P Narrative osteo by mri can not tell from data if pt has dm or pvd, please evaluate for both if necessary await micro to guide rx. gpc so far Time Spent With Patient Time: Total time spent is greater than 50% in coordination of care (as documented) at patient's floor/unit and/or counseling patient:
[2025-01-20 06:08] LABS: Basophils # (Auto) 0.1 Thou/mm3 (0.0-0.2); Basophils % (Auto) 1 % (0-2.5); Eosinophils # (Auto) 0.2 Thou/mm3 (0.0-0.5); Eosinophils % (Auto) 4 % (0-10); Hematocrit 37.4 % (41.0-53.0); Hemoglobin 12.6 g/dL (13.5-16.0); Immature Granulocytes Auto 0.02 Thou/mm3 (0.00-0.00); Lymphocytes # (Auto) 2.4 Thou/mm3 (1.0-4.8); Lymphocytes % (Auto) 40 % (10-50); Mean Corpuscular HGB Conc 33.7 g/dl (31.0-37.0); Mean Corpuscular Hemoglobin 29.9 pg (25.0-35.0); Mean Corpuscular Volume 89 fL (80-100); Monocytes # (Auto) 0.4 Thou/mm3 (0.0-0.8); Monocytes % (Auto) 7 % (0-12); Neutrophils # (Auto) 2.8 Thou/mm3 (1.8-7.7); Neutrophils % (Auto) 48 % (37-80); Nucleated Red Blood Cell # 0.00 Thou/mm3 (0.00-0.00); Nucleated Red Blood Cell % 0 /100 WBC (0); Platelet Count 196 Thou/mm3 (140-440); RDW Standard Deviation 37.9 fL (35.1-43.9); Red Blood Count 4.22 Miln/mm3 (4.50-5.90); White Blood Count 5.9 Thou/mm3 (3.8-10.6)
[2025-01-20 06:28] LABS: Sed Rate (ESR) 69 mm/hr (0-15)
[2025-01-20 06:31] LABS: Alanine Aminotransferase 18 U/L (10-49); Albumin, Serum 3.9 gm/dL (3.5-5.0); Albumin/Globulin Ratio 1.4 (1.2-2.2); Alkaline Phosphatase 74 U/L (46-116); Anion Gap 7 (7-16); Aspartate Amino Transferase 20 U/L (0-34); BUN/Creatinine Ratio 14 Ratio (12-20); Bilirubin,Total 0.3 mg/dL (0.3-1.2); Blood Urea Nitrogen 13 mg/dL (9-23); C-Reactive Protein 2.6 mg/dL (0.0-0.9); Calcium 9.0 mg/dL (8.3-10.6); Calcium (Corrected) 9.1 mg/dL (8.5-10.1); Carbon Dioxide 28.6 mMol/L (20.0-31.0); Chloride 106 mMol/L (98-107); Creatinine (Component) 0.9 mg/dL (0.6-1.3); Estimated Creatinine Clearance 116.8 mL/min (>60); Globulin 2.7 gm/dL (2.3-3.5); Glucose 178 mg/dL (74-106); Magnesium 1.7 mg/dL (1.6-2.6); Osmolality,Calculated 287 (275-295); Phosphorous 3.5 mg/dL (2.4-5.1); Potassium 4.1 mMol/L (3.4-5.1); Sodium 142 mMol/L (136-145); Total Protein 6.6 gm/dL (5.7-8.2); eGFR > 60 See Note
[2025-01-20 07:28] LABS: Hepatitis C Antibody Non Reactive (Non React)
[2025-01-20] MEDS: INSULIN LISPRO (AdmeLOG) 1 UNIT/0.01 ML UNIT 9 UNIT SC ×3 (08:00→17:40)
[2025-01-20] MEDS: cefTRIAXone/D5w 2gm 2 GM/50 ML BAG IV (08:15)
[2025-01-20] MEDS: HEPARIN SOD INJ 5000 UNIT/ML VIAL SC (08:15)
[2025-01-20] MEDS: ASCORBIC ACID 250 MG TABLET 500 MG PO ×2 (08:15→20:38)
[2025-01-20] MEDS: ZINC SULFATE 220 MG CAPSULE PO (08:15)
[2025-01-20] MEDS: MULTIVITAMINS TABLET 1 TAB PO (08:15)
[2025-01-20] MEDS: DOXYCYCLINE 100 MG TABLET PO ×2 (08:15→20:38)
[2025-01-20 10:18] LABS: HIV (1&2) Antibody Rapid Non-Reactive
--- NOTE | 2025-01-20 10:36 | ESPR_ITS ---
<Statement entered by Pato Campa MD - 01/21/25 15:15> Patient seen and examined at bedside. I discussed and supervised with the commercial internship physician who took care of this patient. I personally saw and examined the patient. I agree with most of the assessment and plan. Plan of care discussed with attending Dr. Griselda Campa MD PGY-2 Documentation for date of: 01/20/25 Subjective Subjective Interval history: Pending Culture result of abscess. Dr. Flores's recommendations for IV abx. and PICC line placement. Ordered arterial duplex of LE bilateral, for assessment of possible PVD. No Overnight events. Labs reviewed and patient examined at the bedside. Denies chest pain, palpation, SOB, abdominal pain, N/V, fevers or chills. Exam Vital Signs Temp Pulse Resp BP Pulse Ox O2 Del Method O2 Flow Rate 98.9 F 69 16 135/89 H 98 Room Air 3 01/20/25 08:00 01/20/25 08:00 01/20/25 08:00 01/20/25 08:00 01/20/25 08:00 01/20/25 08:00 01/18/25 16:00 Narrative Exam General: No acute distress, well nourished, AAO x3 Eye: PERRL, EOMI, normal conjunctiva, no scleral icterus HENT: Normocephalic, atraumatic, hearing intact to conversation at normal volume, moist oral mucosa Neck: Supple, non-tender, no JVD, no lymphadenopathy Lungs: Non-labored respirations, symmetric chest rise, Clear to auscultate bilaterally, No wheezing, rhonchi, crackles Heart: Peripheral pulses intact bilaterally, Regular Rate and Rhythm. Abdomen: Soft, non-tender, non-distended, no palpable masses Musculoskeletal: Normal range of motion and strength Skin: left 4th and 5th toe covered with fluffs. No worsening signs of erythema or drainage. Psychiatric: Cooperative, appropriate mood and affect, Awake and alert, not agitated Neuro: Cranial nerves II-XII grossly intact. Strength 5/5 throughout. Sensations intact to light touch. Objective Labs 01/22/25 05:30 01/22/25 05:30 Labs: Laboratory Results - last 24 hr 01/20/25 04:44 WBC 5.9 RBC 4.22 L Hgb 12.6 L Hct 37.4 L MCV 89 MCH 29.9 MCHC 33.7 RDW Std Deviation 37.9 Plt Count 196 Neut % (Auto) 48 Lymph % (Auto) 40 Stevens % (Auto) 7 Eos % (Auto) 4 Baso % (Auto) 1 Neut # (Auto) 2.8 Lymph # (Auto) 2.4 Stevens # (Auto) 0.4 Eos # (Auto) 0.2 Baso # (Auto) 0.1 Immature Gran # (Auto) 0.02 H Absolute Nucleated RBC 0.00 Immature Gran % 0 Nucleated RBC % 0 ESR 69 H Sodium 142 Potassium 4.1 Chloride 106 Carbon Dioxide 28.6 Anion Gap 7 BUN 13 Creatinine 0.9 Estim Creat Clear Calc 116.8 eGFR > 60 BUN/Creatinine Ratio 14 Glucose 178 H D Calculated Osmolality 287 Calcium 9.0 Corrected Calcium 9.1 Phosphorus 3.5 Magnesium 1.7 Total Bilirubin 0.3 AST 20 ALT 18 Alkaline Phosphatase 74 C-Reactive Prot, Quant 2.6 H Total Protein 6.6 Albumin 3.9 Globulin 2.7 Albumin/Globulin Ratio 1.4 Hepatitis C Antibody Non Reactive HIV 1&2 Antibody Rapid Non-Reactive Quality Measures Quality Measures none Assessment & Plan Assessment Current Active Medications: Generic Name Dose Route Start Last Admin Trade Name Freq PRN Reason Stop Dose Admin Acetaminophen 650 mg 01/17/25 15:20 Acetaminophen 325 Mg Tablet PO 02/16/25 15:09 Q6H PRN PAIN SCALE 1-3 (mild Albuterol/Ipratropium 3 ml 01/18/25 08:37 Albuterol/Ipratropium (Duoneb) Rt Syeda 3 Ml Nebu INH 02/17/25 08:36 Q4HRRT PRN SHORTNESS OF BREATH Ascorbic Acid 500 mg 01/19/25 21:00 01/20/25 08:15 Ascorbic Acid 250 Mg Tablet PO 02/18/25 20:59 500 mg BID MARKUS Administration Dextrose 25 ml 01/17/25 15:27 Dextrose 50%-Water Inj 50 Ml Syringe IV 02/16/25 15:26 Q15MIN PRN BG 50-70 responsive npo pt Dextrose 50 ml 01/17/25 15:27 Dextrose 50%-Water Inj 50 Ml Syringe IV 02/16/25 15:26 Q15MIN PRN BG <50 OR BG <70 & pt unresponsive Doxycycline Hyclate 100 mg 01/19/25 21:00 01/20/25 08:15 Doxycycline 100 Mg Tablet PO 01/26/25 20:59 100 mg BID AMRKUS Administration Glucagon 1 mg 01/17/25 15:27 Glucagon Inj 1 Mg Vial IM Q15MIN PRN BG <70, and no IV access Heparin Sodium (Porcine) 5,000 unit 01/17/25 21:00 01/20/25 08:15 Heparin Sod Inj 5000 Unit/Ml Vial SC 01/31/25 20:59 5,000 unit Q12HR MARKUS Administration Ceftriaxone Sodium/Dextrose 2 gm in 50 mls @ 100 mls/hr 01/19/25 10:50 01/20/25 08:15 Rocephin/D5w 2gm IV 01/26/25 10:49 100 mls/hr QDAY MARKUS Administration Ibuprofen 400 mg 01/17/25 15:25 Ibuprofen Tab 400 Mg Tablet PO 02/16/25 15:09 Q6HR PRN Fever > 100.4 Insulin Degludec 25 unit 01/19/25 21:00 01/19/25 21:19 Insulin Degludec 5 Unit/0.05 Ml (Per 5 Units) SC 02/18/25 20:59 25 unit HS MARKUS Administration Insulin Human Lispro 0 unit 01/18/25 18:59 01/20/25 08:02 Insulin Lispro (Admelog) 1 Unit/0.01 Ml Unit SC 02/16/25 22:29 Not Given ACHS [facility] Protocol Insulin Human Lispro 9 unit 01/19/25 11:30 01/20/25 08:00 Insulin Lispro (Admelog) 1 Unit/0.01 Ml Unit SC 02/18/25 11:29 9 unit AC MARKUS Administration Multivitamins 1 tab 01/20/25 09:00 01/20/25 08:15 Multivitamins Tablet PO 02/19/25 08:59 1 tab QDAY MARKUS Administration Ondansetron HCl 4 mg 01/17/25 15:10 Ondansetron Inj 2 Mg/Ml Inj 2 Ml IVP 02/16/25 15:09 Q6H PRN NAUSEA OR VOMITING Protocol Oxycodone/Acetaminophen 1 tab 01/17/25 15:10 Oxycodone/Apap 5/325 Tablet PO 01/22/25 15:09 Q6H PRN PAIN SCALE 4-6 (Moderate Zinc Sulfate 220 mg 01/20/25 09:00 01/20/25 08:15 Zinc Sulfate 220 Mg Capsule PO 02/03/25 08:59 220 mg QDAY MARKUS Administration Plan Arnie Lee is 34y/o M with PMH of type 2 diabetes, present to ED on 01/17/2025 for left 4th toe swelling that started about 4 days ago. The patient reported picking at callouses on the left fourth toe. Patient was admitted for management of cellulitis. #Osteomyelitis proximal and middle phalanges fourth digit #Cellulitis of left 4th and 5th toe #Leukocytois- Resoving -Presented with white discoloration of dorsal aspect of the left 4th toe, and the redness spread to the fifth toe. Erythema in dorsum aspect of the left foot, swelling of the lateral side of left foot with presence of a foul odor and purulent material between the 4th and 5th toes, although no active drainage was observed. -Need to rule out necrotizing fascittis. -On admission, WBC:10.6, and CRP:5.3 -Ankle XR (01/17/2025): No ankle fracture or dislocation -Foot XR (01/17/2025): Prominent soft tissue swelling about the fourth digit although no severo cortical bone destruction -MRI of Left Foot without contrast (01/18/2025): Osteomyelitis proximal and middle phalanges fourth digit -On 01/18, patient received incision and drainage of abscess in anterior surface of the fourth toe. About 15 cc of pus was drained and a culture was taken. There were some necrotic skin that has been debrided to the level of subcutaneous tissue. -Per General Surgery, Amputation of the left 4th toe is NOT indicated due to salvagable condition of the toe. -Blood culture(01/16) showed no growth for 48 hours. -Gram stain result of the abscess shows 4+ WBCs and 2+ GPCs. -Discontinued IV Cefepime 2g q8hr (01/17-01/19) and IV Vancomycin (01/17-01/19), PO Metronidazole 500mg q8hr (01/17-01/19) Plan: -Started on IV ceftriaxone 2g qd (01/19-) and PO doxycycline 100mg bid (01/19-) -Referred Woundcare -Consulted Surgery, Dr. Masters, appreciate recommendations -Consulted ID, Dr. Flores, appreciate recommendations. -Pending Abscess culture result. -Pending Urine culture. #Hyperglycemia #Diabetes Mellitus Type 2, non insulin dependent -HbA1c: 11.6 -On admission, Glucose: 292 -Home medication of Metformin 01/19: Overnight patient received 15 units of insulin degludec, insulin lispro 5 units SC x 1, Premeal insulin lispro 7 units and 10 unit of insulin lispro on sliding scale insulin. Patient bedside glucose was 248. Plan: -Insulin Sliding Scale -Increased insulin levels: Premeal Insulin lispro 9units, Insulin Degludec 25 units. Disposition: Medsurg Diet: Low carb consistent diet GI prophylaxis: None DVT prophylaxis: Heparin 5000 units sc q12hr Code: FULL Assessment and plan discussed with my attending physician Dr. Villalobos and Dr. Campa (PGY-2) Dr. Bellamy (PGY-1) - Internal medicine resident Attending Provider Attestation/Addendum I have seen and examined the patient. I was physically present for the [place] portions of the services provided including history, physical exam, diagnosis, treatment plans and orders. I agree with assessment and plan of care as documented by residents. Even though this this note was carefully revised there may still be minor errors in support manager due to voice recognition software. Abe Villalobos MD
--- NOTE | 2025-01-20 11:44 | XR_ITS ---
Examination: Arterial duplex lower extremity study. Date and time of exam: January 20, 2025, 1351 hours INDICATIONS: Redness swelling and pain infection left foot beginning 1 week ago Findings: Duplex sonographic imaging of the lower extremity arteries using B-mode/Siegel scale imaging and Doppler spectral analysis and color flow. Ankle brachial indices have been recorded. Right common femoral artery demonstrates triphasic flow. Right superficial femoral artery demonstrates triphasic flow. Right popliteal artery demonstrates triphasic flow. Right posterior tibial artery demonstrated triphasic flow. Right ankle/brachial index is 1.2. Left common femoral artery demonstrates triphasic flow. Left superficial femoral artery demonstrates triphasic flow. Left popliteal artery demonstrates triphasic flow. Left posterior tibial artery demonstrated triphasic flow. Left ankle/brachial index is 1.3. Impression: Negative study
--- NOTE | 2025-01-20 12:23 | PC.SS ---
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 Pt refuses SNF. Pt states he has not followed up with PCP at [facility] for months. SS has scheduled pt an appointment for January at 12:45pm with Dr. Yann Sun.
--- NOTE | 2025-01-20 13:32 | PD.SURPROG ---
Documentation for date of: 01/20/25 Subjective Subjective Brief History: 34M with DMII who presented to ER with left foot pain, swelling and erythema. Pt reports symptoms began four days ago, he came to ER yesterday and was planned for admission however needed to make arrangements with work so left AMA and returned today. He notes that even since yesterday the erythema worsened. PMH: DMII (pt admits he does not take his medicine) PSHx: None Meds: Insulin, metformin (not used regularly) Allergies: NKDA Social hx: Occasional smoking Narrative: Pain controlled, WBC remaining normal Exam Vital Signs Temp Pulse Resp BP Pulse Ox O2 Del Method O2 Flow Rate 97.9 F 77 16 113/74 99 Room Air 3 01/20/25 11:11 01/20/25 11:11 01/20/25 11:11 01/20/25 11:11 01/20/25 11:11 01/20/25 11:11 01/18/25 16:00 Constitutional Constitutional: no acute distress Routine Respiratory Exam Respiratory: Present no resp distress Results Results: Laboratory Laboratory results: results reviewed Assessment & Plan Plan 34M s/p I&D of left 4th toe 01/18 with MRI findings of osteomyelitis. I had explained to pt previously that he does not necessarily need toe amputation as his toe could be salvaged with IV antibiotics and glucose control, however pt did express a lot of concern about return to work so today I let him know that toe amputation could lead to a faster recovery and provided that as an option. Pt states he prefers to avoid it so will continue with the plan for IV abx PROCEDURES: Procedures Incision and drainage of left fourth toe abscess
[2025-01-20] MEDS: INSULIN DEGLUDEC 5 UNIT/0.05 ML (PER 5 UNITS) 25 UNIT SC (20:38)
[2025-01-20 23:10] LABS: Vancomycin,Trough < 3.0 mcg/mL (5.0-10.0)
[2025-01-21] VITALS (10 sets, daily range): BP systolic 106–120; BP diastolic 60–78; PULSE 56–82; RESP 14–98; TEMP 36.2–37.2; O2SAT 93–98
--- NOTE | 2025-01-21 | XR_ITS ---
Examination: Ultrasound-guided needle placement right brachial vein. Dual-lumen central line placement (PICC line). Fluoroscopy AP chest, portable, single view Exam date and time: January 21, 2025, 12 INDICATIONS: Need for long-term intravenous antibiotic therapy for osteomyelitis A timeout was completed verifying correct patient, procedure, site, positioning Informed consent provided Technique: The patient's site was prepped and draped in sterile fashion. Maximum Sterile Barrier Technique used including cap, mask, sterile gown, sterile gloves, and sterile full body drape. If ultrasound technique used: sterile gel and sterile probe covers. Hand Hygiene performed using proper scrub, soap and water, or alcohol-based hand rub. Ultrasound utilized to confirm patency of the right brachial vein Utilizing ultrasonographic guidance successful 21-gauge needle puncture into the right brachial vein Ultrasound images recorded and stored. 5 cc 1% lidocaine administered for local anesthetic. Successful micropuncture with a 21-gauge needle is performed. 0.18 wire guide is then introduced into the SVC under fluoroscopic guidance. Dual-lumen catheter dilator is then introduced, followed by the catheter in the SVC and proper position under fluoroscopic guidance. Successful aspiration of blood and flushing with heparinized saline is then performed in the 2 venous limbs. The catheter sutured in place. Findings: Under fluoroscopy, the tip of the catheter is in good position in the vena cava. Portable chest x-ray, post line placement is ordered. Estimated blood loss 3 cc The patient tolerated the procedure well and was in stable and satisfactory condition at completion of the procedure Impression: Successful ultrasound-guided needle placement right brachial vein Successful placement of dual lumen central line, percutaneous Fluoroscopy 0.5-minute radiation dose 5.13 mGy. AP chest completion procedure demonstrates satisfactory position central line. May use central line.
[2025-01-21 06:34] LABS: Basophils # (Auto) 0.0 Thou/mm3 (0.0-0.2); Basophils % (Auto) 1 % (0-2.5); Eosinophils # (Auto) 0.2 Thou/mm3 (0.0-0.5); Eosinophils % (Auto) 4 % (0-10); Hematocrit 39.5 % (41.0-53.0); Hemoglobin 13.2 g/dL (13.5-16.0); Immature Granulocytes Auto 0.02 Thou/mm3 (0.00-0.00); Lymphocytes # (Auto) 1.7 Thou/mm3 (1.0-4.8); Lymphocytes % (Auto) 32 % (10-50); Mean Corpuscular HGB Conc 33.4 g/dl (31.0-37.0); Mean Corpuscular Hemoglobin 29.6 pg (25.0-35.0); Mean Corpuscular Volume 89 fL (80-100); Monocytes # (Auto) 0.5 Thou/mm3 (0.0-0.8); Monocytes % (Auto) 9 % (0-12); Neutrophils # (Auto) 2.7 Thou/mm3 (1.8-7.7); Neutrophils % (Auto) 54 % (37-80); Nucleated Red Blood Cell # 0.00 Thou/mm3 (0.00-0.00); Nucleated Red Blood Cell % 0 /100 WBC (0); Platelet Count 231 Thou/mm3 (140-440); RDW Standard Deviation 38.1 fL (35.1-43.9); Red Blood Count 4.46 Miln/mm3 (4.50-5.90); White Blood Count 5.1 Thou/mm3 (3.8-10.6)
[2025-01-21 06:49] LABS: Alanine Aminotransferase 26 U/L (10-49); Albumin, Serum 3.9 gm/dL (3.5-5.0); Albumin/Globulin Ratio 1.3 (1.2-2.2); Alkaline Phosphatase 71 U/L (46-116); Aspartate Amino Transferase 31 U/L (0-34); BUN/Creatinine Ratio 17 Ratio (12-20); Bilirubin,Total 0.3 mg/dL (0.3-1.2); Blood Urea Nitrogen 15 mg/dL (9-23); Calcium 9.1 mg/dL (8.3-10.6); Calcium (Corrected) 9.2 mg/dL (8.5-10.1); Chloride 105 mMol/L (98-107); Creatinine (Component) 0.9 mg/dL (0.6-1.3); Estimated Creatinine Clearance 116.8 mL/min (>60); Globulin 2.9 gm/dL (2.3-3.5); Glucose 110 mg/dL (74-106); Magnesium 1.9 mg/dL (1.6-2.6); Osmolality,Calculated 284 (275-295); Phosphorous 3.9 mg/dL (2.4-5.1); Potassium 4.0 mMol/L (3.4-5.1); Sodium 142 mMol/L (136-145); Total Protein 6.8 gm/dL (5.7-8.2); eGFR > 60 See Note
[2025-01-21 07:00] LABS: Carbon Dioxide 26.2 mMol/L (20.0-31.0)
[2025-01-21 07:05] LABS: Anion Gap 11 (7-16)
[2025-01-21] MEDS: cefTRIAXone/D5w 2gm 2 GM/50 ML BAG IV (08:29)
[2025-01-21] MEDS: INSULIN LISPRO (AdmeLOG) 1 UNIT/0.01 ML UNIT 9 UNIT SC ×3 (08:29→17:50)
[2025-01-21] MEDS: ZINC SULFATE 220 MG CAPSULE PO (08:30)
[2025-01-21] MEDS: DOXYCYCLINE 100 MG TABLET PO ×2 (08:30→20:09)
[2025-01-21] MEDS: ASCORBIC ACID 250 MG TABLET 500 MG PO ×2 (08:30→20:09)
[2025-01-21] MEDS: MULTIVITAMINS TABLET 1 TAB PO (08:30)
[2025-01-21 08:54] LABS: INR 1.0 (0.9-1.3); Partial Thromboplastin Time 28.1 Seconds (22.0-36.0); Prothrombin Time 10.9 Seconds (9.0-12.2)
--- NOTE | 2025-01-21 08:59 | PC.SS ---
Follow up note: PICC line pending. Pt on IV antibiotic. Pt will require retirement IV antibiotic. Pt is not agreeable to SNF. Pt has been scheduled an appointment with PCP, Dr. Yann Sun from [facility] for Jan at 12:45pm.
--- NOTE | 2025-01-21 09:21 | ESPR_ITS ---
Subjective Subjective Interval history: hiv and hep c neg esr high crp too Exam Vital Signs Temp Pulse Resp BP Pulse Ox O2 Del Method O2 Flow Rate 98.0 F 66 18 106/71 98 Room Air 3 01/21/25 08:00 01/21/25 08:00 01/21/25 08:00 01/21/25 08:00 01/21/25 08:00 01/21/25 08:00 01/18/25 16:00 Narrative Exam not in room. no hd noted. Objective - Internal Medicine Labs 01/21/25 05:10 01/21/25 05:10 Labs: Laboratory Results - last 24 hr 01/20/25 01/20/25 01/21/25 04:44 21:20 05:10 WBC 5.1 RBC 4.46 L Hgb 13.2 L Hct 39.5 L MCV 89 MCH 29.6 MCHC 33.4 RDW Std Deviation 38.1 Plt Count 231 D Neut % (Auto) 54 Lymph % (Auto) 32 Hopkins % (Auto) 9 Eos % (Auto) 4 Baso % (Auto) 1 Neut # (Auto) 2.7 Lymph # (Auto) 1.7 Hopkins # (Auto) 0.5 Eos # (Auto) 0.2 Baso # (Auto) 0.0 Immature Gran # (Auto) 0.02 H Absolute Nucleated RBC 0.00 Immature Gran % 0 Nucleated RBC % 0 PT 10.9 INR 1.0 APTT 28.1 Sodium 142 Potassium 4.0 Chloride 105 Carbon Dioxide 26.2 Anion Gap 11 BUN 15 Creatinine 0.9 Estim Creat Clear Calc 116.8 eGFR > 60 BUN/Creatinine Ratio 17 Glucose 110 H D Calculated Osmolality 284 Calcium 9.1 Corrected Calcium 9.2 Phosphorus 3.9 Magnesium 1.9 Total Bilirubin 0.3 AST 31 ALT 26 Alkaline Phosphatase 71 Total Protein 6.8 Albumin 3.9 Globulin 2.9 Albumin/Globulin Ratio 1.3 Vancomycin Trough < 3.0 L HIV 1&2 Antibody Rapid Non-Reactive Assessment & Plan A&P Narrative osteo by mri dm II, a1c 11.9 01/16/25 gpc on stain but cx mixed so rocephin and doxy ok thru 02/28. no overt pvd noted. bmi 29.2 noted control dm. a1c off 11.9 is high please arrange for weekly cbc, renal panel, esr while on iv rx and line removal at end of rx f/u with outpt primary. I can not see him fast enough in clinic. Time Spent With Patient Time: Total time spent is greater than 50% in coordination of care (as documented) at patient's floor/unit and/or counseling patient:
[2025-01-21] MEDS: LIDOCAINE INJ PF 1% 30 ML VIAL INFL (09:50)
[2025-01-21] MEDS: HEPARIN SOD LOCK SYR 100 UNIT/ML 500 UNIT STFIELD (09:50)
--- NOTE | 2025-01-21 10:59 | ESCONSULT_ITS ---
RE: MARTHA STACY : 1990 DATE OF CONSULTATION: 01/21/2025. REFERRING PHYSICIAN: Dr. Wnislow. REASON FOR CONSULTATION: Cellulitis and osteomyelitis of the foot in a diabetic with an A1C that is rather high. His osteomyelitis is by imaging. I have not seen him because he is out of the room. Blood sugar has been a bit high. I also check on the , his A1C was 11.6. Imaging of his foot was abnormal on 01/18 with an MRI scan. Please see the report on that date. I am seeing him today. Regular imaging of the foot was not striking, so this is rather early. He has no other health problems noted. He failed amoxicillin and doxycycline before but was also on metformin, so he probably needs better control of his diabetes. ALLERGIES: NONE NOTED. RECORDS SUGGEST SOME POLLEN ALLERGIES. IMMUNIZATIONS: UNAVAILABLE. FAMILY HISTORY: UNAVAILABLE. SOCIAL HISTORY: UNAVAILABLE. MEDICATIONS: He was not taking his metformin or insulin cartridge. PHYSICAL EXAMINATION: His exam is limited because he is not able to be seen. He is out of the room. Based on scanning, MRI, etc., and not his white count, he is to probably go home on Rocephin and doxycycline through 02/28. Cultures so far are unrevealing. Gram stain is listed as GPCs, but culture shows mixed nroman and without anaerobes. These were done on 01/17. It is now 01/21. He does need better control of his diabetes and he can finish treatment with Rocephin and doxycycline that should be adequate for any potential pathogens. I will see him again on a p.r.n. basis. DT: ::54 TT: 10:58:00 Ref: [id number] - TID: [id number]
--- NOTE | 2025-01-21 14:07 | ESPR_ITS ---
<Statement entered by Aury Javed MD - 01/22/25 05:35> Patient was seen and examined at bedside. I agree on the assessment and plan on this note as documented by resident Sandra Bellamy DO PGY1. 34-year-old male with past medical history of uncontrolled diabetes mellitus admitted for abscess fourth left toe and concern of osteomyelitis. During hospitalization patient underwent I&D by general surgery of the fourth toe hide MRI of left foot shows osteomyelitis proximal and middle phalanges fourth digit. Blood cultures have been unremarkable, infectious disease was consulted they recommend discharging patient on ceftriaxone 2 g daily and doxycycline 100 mg twice daily through February 28, patient will require home health on discharge to assist with IV antibiotics, PICC line was placed today. Pending home health establishment, patient does not have a primary care physician, will follow-up with social media executive. Case discussed with attending Dr. Latasha Madera MD PGY-2 Documentation for date of: 01/21/25 Subjective Subjective Interval history: Ultrasound arterial duplex lower extremity bilateral skin was negative for PVD. PICC line has been placed today. Abscess culture result showed 1 mixed norman. Anaerobic culture was negative. ID, Dr. Flores, has recommended sending patient home with Rocephin and doxycycline until February 28. For patient's insulin regimen, he is currently taking insulin degludec 25 units SC at bedtime and Premeal insulin lispro 9 units SC AC. Overnight patient has not received any insulin on insulin sliding scale. Bedside glucose level currently is 105. Exam Vital Signs Temp Pulse Resp BP Pulse Ox O2 Del Method O2 Flow Rate 97.1 F 68 18 120/71 98 Room Air 3 01/21/25 12:00 01/21/25 12:00 01/21/25 12:01/21/25 12:01/21/25 12:00 01/21/25 12:00 01/18/25 16:00 Narrative Exam General: No acute distress, well nourished, AAO x3 Eye: PERRL, EOMI, normal conjunctiva, no scleral icterus HENT: Normocephalic, atraumatic, hearing intact to conversation at normal volume, moist oral mucosa Neck: Supple, non-tender, no JVD, no lymphadenopathy Lungs: Non-labored respirations, symmetric chest rise, Clear to auscultate bilaterally, No wheezing, rhonchi, crackles Heart: Peripheral pulses intact bilaterally, Regular Rate and Rhythm. Abdomen: Soft, non-tender, non-distended, no palpable masses Musculoskeletal: Normal range of motion and strength Skin: left 4th and 5th toe covered with fluffs. No worsening signs of erythema or drainage. Psychiatric: Cooperative, appropriate mood and affect, Awake and alert, not agitated Neuro: Cranial nerves II-XII grossly intact. Strength 5/5 throughout. Sensations intact to light touch. Objective Labs 01/22/25 05:30 01/22/25 05:30 Labs: Laboratory Results - last 24 hr 01/20/25 01/21/25 21:20 05:10 WBC 5.1 RBC 4.46 L Hgb 13.2 L Hct 39.5 L MCV 89 MCH 29.6 MCHC 33.4 RDW Std Deviation 38.1 Plt Count 231 D Neut % (Auto) 54 Lymph % (Auto) 32 [place] % (Auto) 9 Eos % (Auto) 4 Baso % (Auto) 1 Neut # (Auto) 2.7 Lymph # (Auto) 1.7 [place] # (Auto) 0.5 Eos # (Auto) 0.2 Baso # (Auto) 0.0 Immature Gran # (Auto) 0.02 H Absolute Nucleated RBC 0.00 Immature Gran % 0 Nucleated RBC % 0 PT 10.9 INR 1.0 APTT 28.1 Sodium 142 Potassium 4.0 Chloride 105 Carbon Dioxide 26.2 Anion Gap 11 BUN 15 Creatinine 0.9 Estim Creat Clear Calc 116.8 eGFR > 60 BUN/Creatinine Ratio 17 Glucose 110 H D Calculated Osmolality 284 Calcium 9.1 Corrected Calcium 9.2 Phosphorus 3.9 Magnesium 1.9 Total Bilirubin 0.3 AST 31 ALT 26 Alkaline Phosphatase 71 Total Protein 6.8 Albumin 3.9 Globulin 2.9 Albumin/Globulin Ratio 1.3 Vancomycin Trough < 3.0 L Quality Measures Quality Measures none Assessment & Plan Assessment Current Active Medications: Generic Name Dose Route Start Last Admin Trade Name Freq PRN Reason Stop Dose Admin Acetaminophen 650 mg 01/17/25 15:20 Acetaminophen 325 Mg Tablet PO 02/16/25 15:09 Q6H PRN PAIN SCALE 1-3 (mild Albuterol/Ipratropium 3 ml 01/18/25 08:37 Albuterol/Ipratropium (Duoneb) Rt Syeda 3 Ml Nebu INH 02/17/25 08:36 Q4HRRT PRN SHORTNESS OF BREATH Ascorbic Acid 500 mg 01/19/25 21:00 01/21/25 08:30 Ascorbic Acid 250 Mg Tablet PO 02/18/25 20:59 500 mg BID MARKUS Administration Dextrose 25 ml 01/17/25 15:27 Dextrose 50%-Water Inj 50 Ml Syringe IV 02/16/25 15:26 Q15MIN PRN BG 50-70 responsive npo pt Dextrose 50 ml 01/17/25 15:27 Dextrose 50%-Water Inj 50 Ml Syringe IV 02/16/25 15:26 Q15MIN PRN BG <50 OR BG <70 & pt unresponsive Doxycycline Hyclate 100 mg 01/19/25 21:00 01/21/25 08:30 Doxycycline 100 Mg Tablet PO 01/26/25 20:59 100 mg BID MARKUS Administration Glucagon 1 mg 01/17/25 15:27 Glucagon Inj 1 Mg Vial IM Q15MIN PRN BG <70, and no IV access Heparin Sodium (Porcine) 5,000 unit 01/17/25 21:00 01/20/25 08:15 Heparin Sod Inj 5000 Unit/Ml Vial SC 01/31/25 20:59 5,000 unit On Hold: 01/20/25 15:12 Q12HR MARKUS Administration Ceftriaxone Sodium/Dextrose 2 gm in 50 mls @ 100 mls/hr 01/19/25 10:50 01/21/25 08:29 Rocephin/D5w 2gm IV 01/26/25 10:49 100 mls/hr QDAY MARKUS Administration Ibuprofen 400 mg 01/17/25 15:25 Ibuprofen Tab 400 Mg Tablet PO 02/16/25 15:09 Q6HR PRN Fever > 100.4 Insulin Degludec 25 unit 01/19/25 21:00 01/20/25 20:38 Insulin Degludec 5 Unit/0.05 Ml (Per 5 Units) SC 02/18/25 20:59 25 unit HS MARKUS Administration Insulin Human Lispro 0 unit 01/18/25 18:59 01/21/25 11:33 Insulin Lispro (Admelog) 1 Unit/0.01 Ml Unit SC 02/16/25 22:29 Not Given ACHS [facility] Protocol Insulin Human Lispro 9 unit 01/19/25 11:30 01/21/25 12:35 Insulin Lispro (Admelog) 1 Unit/0.01 Ml Unit SC 02/18/25 11:29 9 unit AC MARKUS Administration Multivitamins 1 tab 01/20/25 09:00 01/21/25 08:30 Multivitamins Tablet PO 02/19/25 08:59 1 tab QDAY MARKUS Administration Ondansetron HCl 4 mg 01/17/25 15:10 Ondansetron Inj 2 Mg/Ml Inj 2 Ml IVP 02/16/25 15:09 Q6H PRN NAUSEA OR VOMITING Protocol Oxycodone/Acetaminophen 1 tab 01/17/25 15:10 Oxycodone/Apap 5/325 Tablet PO 01/22/25 15:09 Q6H PRN PAIN SCALE 4-6 (Moderate Zinc Sulfate 220 mg 01/20/25 09:00 01/21/25 08:30 Zinc Sulfate 220 Mg Capsule PO 02/03/25 08:59 220 mg QDAY MARKUS Administration Plan Arnie Lee is 34y/o M with PMH of type 2 diabetes, present to ED on 01/17/2025 for left 4th toe swelling that started about 4 days ago. The patient reported picking at callouses on the left fourth toe. Patient was admitted for management of cellulitis. #Osteomyelitis proximal and middle phalanges fourth digit #Cellulitis of left 4th and 5th toe #Leukocytois- Resoving -Presented with white discoloration of dorsal aspect of the left 4th toe, and the redness spread to the fifth toe. Erythema in dorsum aspect of the left foot, swelling of the lateral side of left foot with presence of a foul odor and purulent material between the 4th and 5th toes, although no active drainage was observed. -Need to rule out necrotizing fascittis. -On admission, WBC:10.6, and CRP:5.3 -Ankle XR (01/17/2025): No ankle fracture or dislocation -Foot XR (01/17/2025): Prominent soft tissue swelling about the fourth digit although no severo cortical bone destruction -MRI of Left Foot without contrast (01/18/2025): Osteomyelitis proximal and middle phalanges fourth digit -On 01/18, patient received incision and drainage of abscess in anterior surface of the fourth toe. About 15 cc of pus was drained and a culture was taken. There were some necrotic skin that has been debrided to the level of subcutaneous tissue. -Per General Surgery, Amputation of the left 4th toe is NOT indicated due to salvagable condition of the toe. -Blood culture(01/16) showed no growth for 48 hours. -Gram stain result of the abscess shows 4+ WBCs and 2+ GPCs. -Discontinued IV Cefepime 2g q8hr (01/17-01/19) and IV Vancomycin (01/17-01/19), PO Metronidazole 500mg q8hr (01/17-01/19) -Urince culture was negative. -Abscess culture result showed 1 mixed norman. Anaerobic culture was negative. -ID, Dr. Flores, has recommended sending patient home with Rocephin and doxycycline until February 28. Plan: -Started on IV ceftriaxone 2g qd (01/19-) and PO doxycycline 100mg bid (01/19-) -Referred Woundcare -Consulted Surgery, Dr. Masters, appreciate recommendations -Consulted ID, Dr. Flores, appreciate recommendations. -Pending Urine culture. #Hyperglycemia #Diabetes Mellitus Type 2, non insulin dependent -HbA1c: 11.6 -On admission, Glucose: 292 -Home medication of Metformin 01/19: Overnight patient received 15 units of insulin degludec, insulin lispro 5 units SC x 1, Premeal insulin lispro 7 units and 10 unit of insulin lispro on sliding scale insulin. Patient bedside glucose was 248. Plan: -Insulin Sliding Scale -Increased insulin levels: Premeal Insulin lispro 9units, Insulin Degludec 25 units. Disposition: Medsurg Diet: Low carb consistent diet GI prophylaxis: None DVT prophylaxis: Heparin 5000 units sc q12hr Code: FULL Assessment and plan discussed with my attending physician Dr. Mtz and Dr. Javed (PGY-2) Dr. Bellamy (PGY-1) - Internal medicine resident Attending Provider Attestation/Addendum Latasha Ragsdale, , attest that I was physically present for the [place] portions of the service and evaluated the patient with the resident and I reviewed and discussed the case with the resident and agree with the resident's findings and plans of care as documented above Patient seen and eval this a.m. He states that he is doing well and is anxious to go home. Left foot dressing is clean dry and intact. He states he is able to ambulate. Explained to patient that he needs to be compliant with his insulin at home to avoid further complications due to his diabetes. Patient verbalized understanding, but stated that he was scared of needles. He states he lives with his parents, but they are unable to help him with his injections. He states that he will have to do it himself, understanding that he could potentially lose his limbs due to uncontrolled diabetes. Patient is needing home health for his IV antibiotics, but is awaiting PCP follow-up to establish care and for home health to be arranged. Here remains on doxycycline and Rocephin at this time.
[2025-01-21] MEDS: INSULIN DEGLUDEC 5 UNIT/0.05 ML (PER 5 UNITS) 25 UNIT SC (20:09)
[2025-01-22] VITALS (8 sets, daily range): BP systolic 91–107; BP diastolic 58–65; PULSE 64–76; RESP 14–98; TEMP 36.2–36.6; O2SAT 96–98
[2025-01-22 06:09] LABS: Basophils # (Auto) 0.0 Thou/mm3 (0.0-0.2); Basophils % (Auto) 1 % (0-2.5); Eosinophils # (Auto) 0.1 Thou/mm3 (0.0-0.5); Eosinophils % (Auto) 3 % (0-10); Hematocrit 40.6 % (41.0-53.0); Hemoglobin 13.5 g/dL (13.5-16.0); Immature Granulocytes Auto 0.02 Thou/mm3 (0.00-0.00); Lymphocytes # (Auto) 1.3 Thou/mm3 (1.0-4.8); Lymphocytes % (Auto) 27 % (10-50); Mean Corpuscular HGB Conc 33.3 g/dl (31.0-37.0); Mean Corpuscular Hemoglobin 29.6 pg (25.0-35.0); Mean Corpuscular Volume 89 fL (80-100); Monocytes # (Auto) 0.4 Thou/mm3 (0.0-0.8); Monocytes % (Auto) 8 % (0-12); Neutrophils # (Auto) 2.9 Thou/mm3 (1.8-7.7); Neutrophils % (Auto) 61 % (37-80); Nucleated Red Blood Cell # 0.00 Thou/mm3 (0.00-0.00); Nucleated Red Blood Cell % 0 /100 WBC (0); Platelet Count 224 Thou/mm3 (140-440); RDW Standard Deviation 37.8 fL (35.1-43.9); Red Blood Count 4.56 Miln/mm3 (4.50-5.90); White Blood Count 4.7 Thou/mm3 (3.8-10.6)
[2025-01-22 06:44] LABS: Alanine Aminotransferase 114 U/L (10-49); Albumin, Serum 4.0 gm/dL (3.5-5.0); Albumin/Globulin Ratio 1.4 (1.2-2.2); Alkaline Phosphatase 79 U/L (46-116); Anion Gap 9 (7-16); Aspartate Amino Transferase 129 U/L (0-34); BUN/Creatinine Ratio 17 Ratio (12-20); Bilirubin,Total 0.3 mg/dL (0.3-1.2); Blood Urea Nitrogen 15 mg/dL (9-23); Calcium 9.1 mg/dL (8.3-10.6); Calcium (Corrected) 9.1 mg/dL (8.5-10.1); Carbon Dioxide 27.1 mMol/L (20.0-31.0); Chloride 105 mMol/L (98-107); Creatinine (Component) 0.9 mg/dL (0.6-1.3); Estimated Creatinine Clearance 116.8 mL/min (>60); Globulin 2.9 gm/dL (2.3-3.5); Glucose 152 mg/dL (74-106); Magnesium 1.8 mg/dL (1.6-2.6); Osmolality,Calculated 285 (275-295); Phosphorous 3.4 mg/dL (2.4-5.1); Potassium 4.0 mMol/L (3.4-5.1); Sodium 141 mMol/L (136-145); Total Protein 6.9 gm/dL (5.7-8.2); eGFR > 60 See Note
[2025-01-22] MEDS: INSULIN LISPRO (AdmeLOG) 1 UNIT/0.01 ML UNIT SC (07:37)
[2025-01-22] MEDS: INSULIN LISPRO (AdmeLOG) 1 UNIT/0.01 ML UNIT 9 UNIT SC ×3 (07:37→17:12)
[2025-01-22] MEDS: DOXYCYCLINE 100 MG TABLET PO ×2 (09:31→21:00)
[2025-01-22] MEDS: ZINC SULFATE 220 MG CAPSULE PO (09:31)
[2025-01-22] MEDS: cefTRIAXone/D5w 2gm 2 GM/50 ML BAG IV (09:31)
[2025-01-22] MEDS: MULTIVITAMINS TABLET 1 TAB PO (09:31)
[2025-01-22] MEDS: ASCORBIC ACID 250 MG TABLET 500 MG PO ×2 (09:31→21:00)
--- NOTE | 2025-01-22 13:26 | PC.CC ---
Addendum entered by Conor Schafer RN 01/22/25 17:07: [facility]. [facility] will schedule med delivery when SOC is arranged. Original Note: initial HH ref sent [facility], waiting for responses.
--- NOTE | 2025-01-22 16:44 | ESPR_ITS ---
<Statement entered by Aury Javed MD - 01/23/25 09:05> Patient was seen and examined at bedside. I agree on the assessment and plan on this note as documented by resident Casper Abernathy DO PGY1. 34-year-old male with past medical history of uncontrolled diabetes mellitus admitted for abscess fourth left toe and concern of osteomyelitis. During hospitalization patient underwent I&D by general surgery of the fourth toe hide MRI of left foot shows osteomyelitis proximal and middle phalanges fourth digit. Blood cultures have been unremarkable, infectious disease was consulted they recommend discharging patient on ceftriaxone 2 g daily and doxycycline 100 mg twice daily through February 28, patient will require home health on discharge to assist with IV antibiotics, PICC line has been placed. Pending home health establishment, patient's PCP appointment on Friday, will follow-up with elementary school social worker, likely discharge on 01/24/2025 or 01/25/2025. Case discussed with attending Dr. Latasha Madera MD PGY-2 Documentation for date of: 01/22/25 Subjective Subjective Interval history: Patient was seen and examined at bedside. No acute events took place overnight. Patient was notified that he would need to see his PCP before home health could deliver antibiotics at home. Presently, his appointment is advanced to Friday, until which point the patient is going to receive in-hospital antibiotics. PICC line was placed yesterday. Hep C and HIV 1 and 2 nonreactive. ID, Dr. Flores, has recommended sending patient home with Rocephin and doxycycline until February 28. For patient's insulin regimen, he is currently taking insulin degludec 25 units SC at bedtime and Premeal insulin lispro 9 units SC AC. Patient did not receive insulin sliding scale on top of Premeal insulin at any time yesterday. bedside glucose level in AM 197, and 152 according to morning labs. Ultrasound arterial duplex lower extremity bilateral skin was negative for PVD. Exam Vital Signs Temp Pulse Resp BP Pulse Ox O2 Del Method O2 Flow Rate 97.6 F 66 14 99/63 97 Room Air 3 01/22/25 16:00 01/22/25 16:00 01/22/25 16:00 01/22/25 16:00 01/22/25 16:00 01/22/25 16:00 01/18/25 16:00 Narrative Exam General: No acute distress, well nourished, AAO x3 Eye: PERRL, EOMI, normal conjunctiva, no scleral icterus HENT: Normocephalic, atraumatic, hearing intact to conversation at normal volume, moist oral mucosa Neck: Supple, non-tender, no JVD, no lymphadenopathy Lungs: Non-labored respirations, symmetric chest rise, Clear to auscultate bilaterally, No wheezing, rhonchi, crackles Heart: Peripheral pulses intact bilaterally, Regular Rate and Rhythm. Abdomen: Soft, non-tender, non-distended, no palpable masses Musculoskeletal: Normal range of motion and strength Skin: left 4th and 5th toe covered with fluffs. No worsening signs of erythema or drainage. Psychiatric: Cooperative, appropriate mood and affect, Awake and alert, not agitated Neuro: Cranial nerves II-XII grossly intact. Strength 5/5 throughout. Sensations intact to light touch. Objective Labs 01/22/25 05:30 01/22/25 05:30 Labs: Laboratory Results - last 24 hr 01/22/25 05:30 WBC 4.7 RBC 4.56 Hgb 13.5 Hct 40.6 L MCV 89 MCH 29.6 MCHC 33.3 RDW Std Deviation 37.8 Plt Count 224 Neut % (Auto) 61 Lymph % (Auto) 27 [place] % (Auto) 8 Eos % (Auto) 3 Baso % (Auto) 1 Neut # (Auto) 2.9 Lymph # (Auto) 1.3 [place] # (Auto) 0.4 Eos # (Auto) 0.1 Baso # (Auto) 0.0 Immature Gran # (Auto) 0.02 H Absolute Nucleated RBC 0.00 Immature Gran % 0 Nucleated RBC % 0 Sodium 141 Potassium 4.0 Chloride 105 Carbon Dioxide 27.1 Anion Gap 9 BUN 15 Creatinine 0.9 Estim Creat Clear Calc 116.8 eGFR > 60 BUN/Creatinine Ratio 17 Glucose 152 H Calculated Osmolality 285 Calcium 9.1 Corrected Calcium 9.1 Phosphorus 3.4 Magnesium 1.8 Total Bilirubin 0.3 AST 129 H ALT 114 H Alkaline Phosphatase 79 Total Protein 6.9 Albumin 4.0 Globulin 2.9 Albumin/Globulin Ratio 1.4 Quality Measures Quality Measures none Assessment & Plan Assessment Current Active Medications: Generic Name Dose Route Start Last Admin Trade Name Freq PRN Reason Stop Dose Admin Acetaminophen 650 mg 01/17/25 15:20 Acetaminophen 325 Mg Tablet PO 02/16/25 15:09 Q6H PRN PAIN SCALE 1-3 (mild Albuterol/Ipratropium 3 ml 01/18/25 08:37 Albuterol/Ipratropium (Duoneb) Rt Syeda 3 Ml Nebu INH 02/17/25 08:36 Q4HRRT PRN SHORTNESS OF BREATH Ascorbic Acid 500 mg 01/19/25 21:00 01/22/25 09:31 Ascorbic Acid 250 Mg Tablet PO 02/18/25 20:59 500 mg BID MARKUS Administration Dextrose 25 ml 01/17/25 15:27 Dextrose 50%-Water Inj 50 Ml Syringe IV 02/16/25 15:26 Q15MIN PRN BG 50-70 responsive npo pt Dextrose 50 ml 01/17/25 15:27 Dextrose 50%-Water Inj 50 Ml Syringe IV 02/16/25 15:26 Q15MIN PRN BG <50 OR BG <70 & pt unresponsive Doxycycline Hyclate 100 mg 01/19/25 21:00 01/22/25 09:31 Doxycycline 100 Mg Tablet PO 01/26/25 20:59 100 mg BID MARKUS Administration Glucagon 1 mg 01/17/25 15:27 Glucagon Inj 1 Mg Vial IM Q15MIN PRN BG <70, and no IV access Heparin Sodium (Porcine) 5,000 unit 01/17/25 21:00 01/20/25 08:15 Heparin Sod Inj 5000 Unit/Ml Vial SC 01/31/25 20:59 5,000 unit On Hold: 01/20/25 15:12 Q12HR MARKUS Administration Ceftriaxone Sodium/Dextrose 2 gm in 50 mls @ 100 mls/hr 01/19/25 10:50 01/22/25 09:31 Rocephin/D5w 2gm IV 01/26/25 10:49 100 mls/hr QDAY MARKUS Administration Ibuprofen 400 mg 01/17/25 15:25 Ibuprofen Tab 400 Mg Tablet PO 02/16/25 15:09 Q6HR PRN Fever > 100.4 Insulin Degludec 25 unit 01/19/25 21:00 01/21/25 20:09 Insulin Degludec 5 Unit/0.05 Ml (Per 5 Units) SC 02/18/25 20:59 25 unit HS MARKUS Administration Insulin Human Lispro 0 unit 01/18/25 18:59 01/22/25 12:02 Insulin Lispro (Admelog) 1 Unit/0.01 Ml Unit SC 02/16/25 22:29 Not Given ACHS [facility] Protocol Insulin Human Lispro 9 unit 01/19/25 11:30 01/22/25 12:13 Insulin Lispro (Admelog) 1 Unit/0.01 Ml Unit SC 02/18/25 11:29 9 unit AC MARKUS Administration Multivitamins 1 tab 01/20/25 09:00 01/22/25 09:31 Multivitamins Tablet PO 02/19/25 08:59 1 tab QDAY MARKUS Administration Ondansetron HCl 4 mg 01/17/25 15:10 Ondansetron Inj 2 Mg/Ml Inj 2 Ml IVP 02/16/25 15:09 Q6H PRN NAUSEA OR VOMITING Protocol Zinc Sulfate 220 mg 01/20/25 09:00 01/22/25 09:31 Zinc Sulfate 220 Mg Capsule PO 02/03/25 08:59 220 mg QDAY MARKUS Administration Plan Arnie Lee is 34y/o M with PMH of type 2 diabetes, present to ED on 01/17/2025 for left 4th toe swelling that started about 4 days ago. The patient reported picking at callouses on the left fourth toe. Patient was admitted for management of cellulitis. #Osteomyelitis proximal and middle phalanges fourth digit #Cellulitis of left 4th and 5th #Abscess fourth toe status post incision and drainage, 01/18 # Leukocytosis -Presented with white discoloration of dorsal aspect of the left 4th toe, and the redness spread to the fifth toe. Erythema in dorsum aspect of the left foot, swelling of the lateral side of left foot with presence of a foul odor and purulent material between the 4th and 5th toes, although no active drainage was observed. -On admission, WBC:10.6, and CRP:5.3 , Ankle XR (01/17/2025): No ankle fracture or dislocation, Foot XR (01/17/2025): Prominent soft tissue swelling about the fourth digit although no severo cortical bone destruction -MRI of Left Foot without contrast (01/18/2025): Osteomyelitis proximal and middle phalanges fourth digit -On 01/18, patient received incision and drainage of abscess in anterior surface of the fourth toe. About 15 cc of pus was drained and a culture was taken. There were some necrotic skin that has been debrided to the level of subcutaneous tissue. Per General Surgery, Amputation of the left 4th toe is NOT indicated due to salvagable condition of the toe. -Discontinued IV Cefepime 2g q8hr (01/17-01/19) and IV Vancomycin (01/17-01/19), PO Metronidazole 500mg q8hr (01/17-01/19) -Abscess culture result showed 1 mixed norman. Anaerobic culture was negative. -ID, Dr. Flores, has recommended sending patient home with Rocephin and doxycycline until February 28. ? Hep C and HIV 1&2 came back negative (non-reactive) ? Patient reported advancing his PCP appt to Friday next week, from which point he can receive his IV ABx at home to be arranged with homehealth. Plan: -IV ceftriaxone 2g qd (01/19-) and PO doxycycline 100mg bid (01/19-) till February 28, 2025 per infectious disease recommendations -Referred Woundcare -Consulted Surgery, Dr. Masters, appreciate recommendations -Consulted ID, Dr. Flores, appreciate recommendations. -Pending Urine culture. - Pending home health establishment #Hyperglycemia #Diabetes Mellitus Type 2, non insulin dependent -HbA1c: 11.6 -On admission, Glucose: 292 -Home medication of Metformin Plan: -Insulin Sliding Scale -Increased insulin levels: Premeal Insulin lispro 9units, Insulin Degludec 25 units. #Transaminitis, mild Mild transaminitis noted, will repeat LFTs in a.m., patient asymptomatic Disposition: Medsurg Diet: Low carb consistent diet GI prophylaxis: None DVT prophylaxis: Heparin 5000 units sc q12hr Code: FULL This case was discussed with my attending physician, Dr. Mtz, and senior resident, Dr Javed. Casper Abernathy DO PGY I Disclaimer: This note was dictated by speech recognition. Minor errors in drop hammer set up operator may be present due to voice recognition software. Attending Provider Attestation/Addendum Latasha Ragsdale DO, attest that I was physically present for the [place] portions of the service and evaluated the patient with the resident and I reviewed and discussed the case with the resident and agree with the resident's findings and plans of care as documented above Patient seen and eval this a.m. Patient states that he was able to switch his appt to Friday. Anticipate dc on Friday/ Friday to resume Abx with [facility]. Patient remains stable, dressing is clean, dry and intact. He denies any active pain. Patient states he can leave whenver he wishes. Explained to patient that if he does end up leaving against medical advice, he is at risk, including but not limited to worsening infection of his left limb which may lead to amputation, sepsis, sudden . Patient verbalized understanding, but persisted that he can leave anytime he wishes to.
[2025-01-22] MEDS: INSULIN DEGLUDEC 5 UNIT/0.05 ML (PER 5 UNITS) 25 UNIT SC (21:01)
[2025-01-23] VITALS (7 sets, daily range): BP systolic 92–110; BP diastolic 59–67; PULSE 53–75; RESP 16–20; TEMP 36.3–36.9; O2SAT 97–99
[2025-01-23 06:07] LABS: Alanine Aminotransferase 115 U/L (10-49); Albumin, Serum 4.0 gm/dL (3.5-5.0); Alkaline Phosphatase 77 U/L (46-116); Aspartate Amino Transferase 79 U/L (0-34); Bilirubin,Direct 0.1 mg/dL (0.0-0.3); Bilirubin,Total 0.4 mg/dL (0.3-1.2); Total Protein 6.9 gm/dL (5.7-8.2)
[2025-01-23] MEDS: INSULIN LISPRO (AdmeLOG) 1 UNIT/0.01 ML UNIT 9 UNIT SC ×3 (07:21→17:21)
[2025-01-23] MEDS: ZINC SULFATE 220 MG CAPSULE PO (08:47)
[2025-01-23] MEDS: MULTIVITAMINS TABLET 1 TAB PO (08:47)
[2025-01-23] MEDS: cefTRIAXone/D5w 2gm 2 GM/50 ML BAG IV (08:47)
[2025-01-23] MEDS: ASCORBIC ACID 250 MG TABLET 500 MG PO ×2 (08:47→21:22)
[2025-01-23] MEDS: DOXYCYCLINE 100 MG TABLET PO ×2 (08:47→21:22)
--- NOTE | 2025-01-23 10:16 | PC.SS ---
SS update: closed on weekend, earliest discharge is Friday-Friday.
[2025-01-23] MEDS: ACETAMINOPHEN 325 MG TABLET 650 MG PO (11:20)
--- NOTE | 2025-01-23 11:24 | PC.CC ---
received calls from CATHY Covarrubias and Nurse Fierro for HH status, informed them both that HH agency is closed so no SOC has been arranged. [facility] was ready to deliver meds today however because no SOC has been arranged, they canceled the delivery of meds. We will coordinate with [facility] once we get a SOC established.
--- NOTE | 2025-01-23 13:11 | ESPR_ITS ---
Documentation for date of: 01/23/25 Subjective Subjective Interval history: Patient seen examined at bedside, no current complaints. ID recs discharging patient on ceftriaxone 2 g daily and doxycycline 100 mg twice daily through February 28, Pending home health establishment, patient's PCP appointment on Friday, will follow-up with social services coordinator, likely discharge on 01/24/2025 or 01/25/2025. Exam Vital Signs Temp Pulse Resp BP Pulse Ox O2 Del Method O2 Flow Rate 97.3 F 75 18 106/67 97 Room Air 3 01/23/25 12:00 01/23/25 12:00 01/23/25 12:00 01/23/25 12:00 01/23/25 12:00 01/23/25 12:00 01/18/25 16:00 Narrative Exam General: No acute distress, well nourished, AAO x3 Eye: PERRL, EOMI, normal conjunctiva, no scleral icterus HENT: Normocephalic, atraumatic, hearing intact to conversation at normal volume, moist oral mucosa Neck: Supple, non-tender, no JVD, no lymphadenopathy Lungs: Non-labored respirations, symmetric chest rise, Clear to auscultate bilaterally, No wheezing, rhonchi, crackles Heart: Peripheral pulses intact bilaterally, Regular Rate and Rhythm. Abdomen: Soft, non-tender, non-distended, no palpable masses Musculoskeletal: Normal range of motion and strength Skin: left 4th and 5th toe covered with fluffs. No worsening signs of erythema or drainage. Psychiatric: Cooperative, appropriate mood and affect, Awake and alert, not agitated Neuro: Cranial nerves II-XII grossly intact. Strength 5/5 throughout. Sensations intact to light touch. Objective Labs 01/22/25 05:30 01/22/25 05:30 Labs: Laboratory Results - last 24 hr 01/23/25 05:08 Total Bilirubin 0.4 Direct Bilirubin 0.1 AST 79 H ALT 115 H Alkaline Phosphatase 77 Total Protein 6.9 Albumin 4.0 Quality Measures Quality Measures none Assessment & Plan Assessment Current Active Medications: Generic Name Dose Route Start Last Admin Trade Name Freq PRN Reason Stop Dose Admin Acetaminophen 650 mg 01/17/25 15:20 Acetaminophen 325 Mg Tablet PO 02/16/25 15:09 Q6H PRN PAIN SCALE 1-3 (mild Albuterol/Ipratropium 3 ml 01/18/25 08:37 Albuterol/Ipratropium (Duoneb) Rt Syeda 3 Ml Nebu INH 02/17/25 08:36 Q4HRRT PRN SHORTNESS OF BREATH Ascorbic Acid 500 mg 01/19/25 21:00 01/23/25 08:47 Ascorbic Acid 250 Mg Tablet PO 02/18/25 20:59 500 mg BID MARKUS Administration Dextrose 25 ml 01/17/25 15:27 Dextrose 50%-Water Inj 50 Ml Syringe IV 02/16/25 15:26 Q15MIN PRN BG 50-70 responsive npo pt Dextrose 50 ml 01/17/25 15:27 Dextrose 50%-Water Inj 50 Ml Syringe IV 02/16/25 15:26 Q15MIN PRN BG <50 OR BG <70 & pt unresponsive Doxycycline Hyclate 100 mg 01/19/25 21:00 01/23/25 08:47 Doxycycline 100 Mg Tablet PO 01/26/25 20:59 100 mg BID MARKUS Administration Glucagon 1 mg 01/17/25 15:27 Glucagon Inj 1 Mg Vial IM Q15MIN PRN BG <70, and no IV access Ceftriaxone Sodium/Dextrose 2 gm in 50 mls @ 100 mls/hr 01/19/25 10:50 01/23/25 08:47 Rocephin/D5w 2gm IV 01/26/25 10:49 100 mls/hr QDAY MARKUS Administration Ibuprofen 400 mg 01/17/25 15:25 Ibuprofen Tab 400 Mg Tablet PO 02/16/25 15:09 Q6HR PRN Fever > 100.4 Insulin Degludec 25 unit 01/19/25 21:00 01/22/25 21:01 Insulin Degludec 5 Unit/0.05 Ml (Per 5 Units) SC 02/18/25 20:59 25 unit HS MARKUS Administration Insulin Human Lispro 0 unit 01/18/25 18:59 01/23/25 11:51 Insulin Lispro (Admelog) 1 Unit/0.01 Ml Unit SC 02/16/25 22:29 Not Given ACHS [facility] Protocol Insulin Human Lispro 9 unit 01/19/25 11:30 01/23/25 11:58 Insulin Lispro (Admelog) 1 Unit/0.01 Ml Unit SC 02/18/25 11:29 9 unit AC MARKUS Administration Multivitamins 1 tab 01/20/25 09:00 01/23/25 08:47 Multivitamins Tablet PO 02/19/25 08:59 1 tab QDAY MARKUS Administration Ondansetron HCl 4 mg 01/17/25 15:10 Ondansetron Inj 2 Mg/Ml Inj 2 Ml IVP 02/16/25 15:09 Q6H PRN NAUSEA OR VOMITING Protocol Zinc Sulfate 220 mg 01/20/25 09:00 01/23/25 08:47 Zinc Sulfate 220 Mg Capsule PO 02/03/25 08:59 220 mg QDAY MARKUS Administration Plan Arnie Lee is 34y/o M with PMH of type 2 diabetes, present to ED on 01/17/2025 for left 4th toe swelling that started about 4 days ago. The patient reported picking at callouses on the left fourth toe. Patient was admitted for management of cellulitis. #Osteomyelitis proximal and middle phalanges fourth digit #Cellulitis of left 4th and 5th #Abscess fourth toe status post incision and drainage, 01/18 # Leukocytosis -Presented with white discoloration of dorsal aspect of the left 4th toe, and the redness spread to the fifth toe. Erythema in dorsum aspect of the left foot, swelling of the lateral side of left foot with presence of a foul odor and purulent material between the 4th and 5th toes, although no active drainage was observed. -On admission, WBC:10.6, and CRP:5.3 , Ankle XR (01/17/2025): No ankle fracture or dislocation, Foot XR (01/17/2025): Prominent soft tissue swelling about the fourth digit although no severo cortical bone destruction -MRI of Left Foot without contrast (01/18/2025): Osteomyelitis proximal and middle phalanges fourth digit -On 01/18, patient received incision and drainage of abscess in anterior surface of the fourth toe. About 15 cc of pus was drained and a culture was taken. There were some necrotic skin that has been debrided to the level of subcutaneous tissue. Per General Surgery, Amputation of the left 4th toe is NOT indicated due to salvagable condition of the toe. -Discontinued IV Cefepime 2g q8hr (01/17-01/19) and IV Vancomycin (01/17-01/19), PO Metronidazole 500mg q8hr (01/17-11/12) -Abscess culture result showed 1 mixed norman. Anaerobic culture was negative. -ID, Dr. Flores, has recommended sending patient home with Rocephin and doxycycline until February 28. ? Hep C and HIV 1&2 came back negative (non-reactive) ? Patient reported advancing his PCP appt to Friday next week, from which point he can receive his IV ABx at home to be arranged with homehealth. Plan: -IV ceftriaxone 2g qd (01/19-) and PO doxycycline 100mg bid (01/19-) till February 28, 2025 per infectious disease recommendations -Referred Woundcare -Consulted Surgery, Dr. Masters, appreciate recommendations -Consulted ID, Dr. Flores, appreciate recommendations. -Pending Urine culture. - Pending home health establishment #Hyperglycemia #Diabetes Mellitus Type 2, non insulin dependent -HbA1c: 11.6 -On admission, Glucose: 292 -Home medication of Metformin Plan: -Insulin Sliding Scale -Increased insulin levels: Premeal Insulin lispro 9units, Insulin Degludec 25 units. #Transaminitis, mild Mild transaminitis noted, will repeat LFTs in a.m., patient asymptomatic Disposition: Medsurg Diet: Low carb consistent diet GI prophylaxis: None DVT prophylaxis: Heparin 5000 units sc q12hr Code: FULL Case discussed with Attending Physician Dr. Latasha Madera MD Internal Medicine PGY-2 Disclaimer: This note was dictated by speech recognition. Minor errors in supervisor customer services may be present due to voice recognition software. Attending Provider Attestation/Addendum I, Latasha Mtz DO, attest that I was physically present for the [place] portions of the service and evaluated the patient with the resident and I reviewed and discussed the case with the resident and agree with the resident's findings and plans of care as documented above Patient seen and eval this a.m. He has no acute complaints at this time. Patient can likely be discharged tomorrow so that he can go see his PCP on Friday a.m. to resume his IV antibiotics with home health. Case discussed with social services coordinator who will speak will Rayku regarding antibiotic arrangements. Patient otherwise has no acute complaints.
[2025-01-23] MEDS: INSULIN LISPRO (AdmeLOG) 1 UNIT/0.01 ML UNIT SC (17:21)
[2025-01-24] VITALS: BP 106/63; PULSE 72; RESP 16; TEMP 36.3; O2SAT 97
[2025-01-24 01:49] VITALS: PULSE 75; RESP 18; O2SAT 97
[2025-01-24 04:00] VITALS: BP 98/63; PULSE 66; RESP 18; TEMP 36.7; O2SAT 99
[2025-01-24 07:18] VITALS: PULSE 93; RESP 20; O2SAT 95
[2025-01-24] MEDS: INSULIN LISPRO (AdmeLOG) 1 UNIT/0.01 ML UNIT 9 UNIT SC (07:34)
[2025-01-24] MEDS: INSULIN LISPRO (AdmeLOG) 1 UNIT/0.01 ML UNIT SC (07:35)
[2025-01-24 08:00] VITALS: BP 107/75; PULSE 78; RESP 17; TEMP 36.4; O2SAT 98
--- NOTE | 2025-01-24 08:15 | PC.CC ---
Addendum entered by Conor Schafer RN 01/24/25 15:40: received messages from [facility] and [facility] stating pt is not Homebound and can not open patient. Patient already discharged home when i was notified. Called and spoke to Bobbi romero/ [facility], she spoke to administration and agreed to provide teaching. Informed [facility] that [facility] will see patient to provide teaching. [facility] will coordinate med delivery and [facility] will see patient 01/25/25 @ 1200 pm Addendum entered by Conor Schafer RN 01/24/25 09:25: [facility] confirmed meds will be delivered today. Original Note: [facility] will open 01/25/25, informed [facility]. waiting for [facility] to confirmed med delivery. If meds can be delivered today, pt can dc after today's dose. Spoke to bedside nurse Becky, informed her of POC.
[2025-01-24] MEDS: ZINC SULFATE 220 MG CAPSULE PO (08:28)
[2025-01-24] MEDS: ASCORBIC ACID 250 MG TABLET 500 MG PO (08:28)
[2025-01-24] MEDS: MULTIVITAMINS TABLET 1 TAB PO (08:28)
[2025-01-24] MEDS: DOXYCYCLINE 100 MG TABLET PO (08:29)
[2025-01-24] MEDS: cefTRIAXone/D5w 2gm 2 GM/50 ML BAG IV (08:48)
[2025-01-24 11:52] VITALS: BP 121/81; PULSE 79; RESP 17; TEMP 36.4; O2SAT 98
--- NOTE | 2025-01-24 14:41 | ESDS_ITS ---
<Statement entered by Aury Javed MD - 01/25/25 15:37> Patient was seen and examined by me personally. I have reviewed the below documentation by the team resident and agree with its findings. Discharge plan was discussed with the attending, Dr. Abe Javed MD Internal Medicine, PGY-2 Planned Discharge Date 01/24/25 DS: Providers Provider Date of admission: 01/17/25 15:26 Primary care physician: Yann Sun MD Admitting Provider: Romeo Winslow DO Attending Provider on Admission: Abe Villalobos MD Consults: 01/17/25 16:30 Referral Wound Care Routine Comment: left 4th and 5th toe and left foot 01/17/25 16:33 Consult to General Surgery Routine Comment: Left 4th toe cellulitis. possible I&D Consulting Provider: Rosalee Masters 01/17/25 22:43 Health Equity Referral - Knowledge Deficit Routine Comment: Positive screening for knowledge deficit needs. Health Equity Referral - Nutrition Routine Comment: Positive screening for nutrition needs. 01/19/25 10:49 Consult to Infectious Diseases Urgent Comment: Osteomyelitis Consulting Provider: Shamir Flores 01/19/25 11:09 Referral OP Wound Healing Dept Routine Comment: Left 4th toe abscess s/p I&D 01/19/25 11:10 Referral Nutritional Services Routine Comment: Wounds Attending Provider on DC: Sandra Bellamy DO Discharging Provider: Sandra Bellamy DO DS: Diagnosis Problem List Completed Was Problem List Reviewed/Reconciled?: Yes Hospital Course Hospital Course Hospital course: Summary: Arnie Lee is 34y/o M with PMH of type 2 diabetes, present to ED on 01/17/2025 for left 4th toe swelling that started about 4 days ago. The patient reported picking at callouses on the left fourth toe. Patient was admitted for management of cellulitis. MRI showed Osteomyelitis proximal and middle phalanges of fourth digit. Patient received incision and drainage, IV and PO antibiotics. His blood glucose was controled with 9 units of premeal insulin lispro and 25 units of insulin degludec. Patient was discharged with insulin, IV and PO antibiotics. ED course: Labs:WBC: 10.6, Hgb:14.4, HCO3-: 28.3, Glucose:359, HbA1c:11.6, Lactic acid:1.3, CRP:5.3, Procalcitonin:0.10 UA: Clear yellow urine, Urine protein:2+, Urine glucose:4+, Urine Blood:2+, Urine Nitrite: Negative, Urine Leukocyte Esterase: Negative, Urine RBC:30. Ankle XR (01/17/2025): No ankle fracture or dislocation Foot XR (01/17/2025): Prominent soft tissue swelling about the fourth digit although no severo cortical bone destruction In ED, patient received IV zosyn 3.375mg x1 and IV Vancomycin x1 Hospital Course: Upon admission to the hospital, patient started on IV Cefepime 2g q8hr and IV Vancomycin. Patient's glucose was uncontrolled with glucose level of 292 on admission, so he started on Insulin Lispro 7units SC AC and Insulin Degludec 10unit qd. On 01/18, MRI of Left Foot without contrast (01/18/2025) showed Osteomyelitis proximal and middle phalanges fourth digit. Patient received incision and drainage of abscess in anterior surface of the fourth toe. About 15 cc of pus was drained and a culture was taken. There were some necrotic skin that has been debrided to the level of subcutaneous tissue. Per General Surgery, Amputation of the left 4th toe was not indicated due to salvagable condition of the toe. At the time, glucose level was still ranging around 236 so increased insulin degludec from 10 unit to 15 units. On 01/19, Blood culture showed no growth for 48 hours. Discontinued IV Cefepime 2g q8hr, IV Vancomycin, PO Metronidazole 500mg q8hr. Started on IV ceftriaxone 2g qd and PO doxycycline 100mg bid. Patient's bedside glucose was still high with 248. Insulin doseage increased to premeal Insulin lispro 9units, Insulin Degludec 25 units. On 01/21, PICC line was placed. Ultrasound arterial duplex lower extremity bilateral skin was negative for PVD. Abscess culture result showed 1 mixed norman. Anaerobic culture was negative. ID, Dr. Flores, has recommended sending patient home with IV Rocephin 2g qd and PO doxycycline 100mg bid until February 28. His bedside glucose level finally decreased to 105. Hep C and HIV 1 and 2 was nonreactive. Patient's labs and vitals were stable and was discharged with insulin and, IV and PO antibiotics. #Osteomyelitis proximal and middle phalanges fourth digit #Cellulitis of left 4th and 5th toe #Leukocytois- Resoving #Hyperglycemia #Diabetes Mellitus Type 2, non insulin dependent Instructions: - Continue ceftriaxone 2 g daily till February 28, 2025 and doxycycline 100 mg twice a day till February 28, 2025 - Continue vitamin C and zinc - Maintain stricter control of your diabetes, take degludec 25 units daily and lispro 9 units with meals, follow-up with your primary care physician to discuss further options. - Continue follow-up with wound care outpatient, follow-up with Dr. Masters outpatient. 1) Follow up with Dr. Masters in 1 week. Please call [phone] 2) Follow up at [facility], [address] [place] [address]. Call [phone] for appointment 3) May shower than change your dressings once a day and as needed for falling out or saturating. 4) Wound care to left 4th: -Wash hands with soap and water, remove old dressing including packing strips -Irrigate with normal saline well and pat dry -Repeat washing hands or change gloves -Pack wound with strip packing to the deepest portion of wound continuing until resistance is felt and cavity is filled. -Cover with dry gauze dressing and secure wth kerlix roll. Change once a day and as needed for falling off. Ambulate using heel of foot only, do no walk using toes. Avoid use of tight fitting shoes or socks until wound is healed. Elevate foot above heart level to help with swelling while sitting or laying down. If active bleeding occurs, apply tight dressing and return to MD or ER. ? Notify primary doctor or return to Emergency Room if any of the following: ? Fever above 100.6? F. ? Increased pain ? Increase swelling ? Red streaks around your wound ? Drainage becomes foul smelling or changes color ? The wound is larger or deeper ? The wound looks dried out or dark ? Bleeding that does not stop with holding pressure Assessment and plan discussed with my attending physician Dr. Villalobos and Dr. Javed (PGY-2) Dr. Bellamy (PGY-1) - Internal medicine resident Status at Discharge Overall status at discharge: patient is progressing back to baseline Time Spent with Patient Time attestation: Total time spent providing and/or coordinating discharge services: 34 min Time spent: Greater than 30 minutes Exam Vital Signs Temp Pulse Resp BP Pulse Ox O2 Del Method O2 Flow Rate 97.6 F 79 17 121/81 98 Room Air 3 01/24/25 11:52 01/24/25 11:52 01/24/25 11:52 01/24/25 11:52 01/24/25 11:52 01/24/25 11:52 01/18/25 16:00 Narrative Exam General: No acute distress, well nourished, AAO x3 Eye: PERRL, EOMI, normal conjunctiva, no scleral icterus HENT: Normocephalic, atraumatic, hearing intact to conversation at normal volume, moist oral mucosa Neck: Supple, non-tender, no JVD, no lymphadenopathy Lungs: Non-labored respirations, symmetric chest rise, Clear to auscultate bilaterally, No wheezing, rhonchi, crackles Heart: Peripheral pulses intact bilaterally, Regular Rate and Rhythm. Abdomen: Soft, non-tender, non-distended, no palpable masses Musculoskeletal: Normal range of motion and strength Skin: left 4th and 5th toe covered with fluffs. No worsening signs of erythema or drainage. Psychiatric: Cooperative, appropriate mood and affect, Awake and alert, not agitated Neuro: Cranial nerves II-XII grossly intact. Strength 5/5 throughout. Sensations intact to light touch. Discharge Plan Plan Patient Disposition: Home w/HOME HEALTH Patient condition on transfer: Stable Care Plan Goals: - Continue ceftriaxone 2 g daily till February 28, 2025 and doxycycline 100 mg twice a day till February 28, 2025 - Continue vitamin C and zinc - Maintain stricter control of your diabetes, take degludec 25 units daily and lispro 9 units with meals, follow-up with your primary care physician to discuss further options. - Continue follow-up with wound care outpatient, follow-up with Dr. Masters outpatient. 1) Follow up with Dr. Masters in 1 week. Please call [phone] 2) Follow up at [facility], [address] [place] [address]. Call [phone] for appointment 3) May shower than change your dressings once a day and as needed for falling out or saturating. 4) Wound care to left 4th: -Wash hands with soap and water, remove old dressing including packing strips -Irrigate with normal saline well and pat dry -Repeat washing hands or change gloves -Pack wound with strip packing to the deepest portion of wound continuing until resistance is felt and cavity is filled. -Cover with dry gauze dressing and secure wth kerlix roll. Change once a day and as needed for falling off. Ambulate using heel of foot only, do no walk using toes. Avoid use of tight fitting shoes or socks until wound is healed. Elevate foot above heart level to help with swelling while sitting or laying down. If active bleeding occurs, apply tight dressing and return to MD or ER. ? Notify primary doctor or return to Emergency Room if any of the following: ? Fever above 100.6? F. ? Increased pain ? Increase swelling ? Red streaks around your wound ? Drainage becomes foul smelling or changes color ? The wound is larger or deeper ? The wound looks dried out or dark ? Bleeding that does not stop with holding pressure Prescriptions/Referrals Prescriptions/Med Rec: New insulin degludec 100 unit/mL (3 mL) insulin pen 25 unit subcut HS Qty: 15 0RF insulin lispro [Humalog KwikPen Insulin] 100 unit/mL insulin pen 9 unit subcut AC Qty: 15 0RF (DME) pen needle, diabetic [Comfort EZ Pen [place]] 31 gauge x 1/4 needle See Rx Instructions .Route Qty: 100 0RF Rx Instructions: As directed ascorbic acid (vitamin C) [Vitamin C] 250 mg Tablet 500 mg PO BID 30 Days Qty: 120 0RF ceftriaxone in dextrose,iso-os 2 gram/50 mL piggyback 2 g IV QDAY PRN35 Days Qty: 0 0RF doxycycline hyclate 100 mg Tablet 100 mg PO BID 35 Days Qty: 70 0RF zinc sulfate 50 mg zinc (220 mg) Capsule 220 mg PO QDAY 7 Days Qty: 31 0RF (DME) FreeStyle Colin 3 [place] Misc See Rx Instructions .Route Qty: 1 0RF Rx Instructions: As directed (DME) FreeStyle Colin 3 Sensor Device See Rx Instructions .Route Qty: 1 0RF Rx Instructions: As directed Discontinued metformin 500 mg Tablet 500 mg PO BID (DME) insulin pump cartridge Cartridge amoxicillin-pot clavulanate 875-125 mg tablet 1 tab PO BID 14 Days Qty: 28 0RF doxycycline monohydrate 100 mg capsule 100 mg PO BID 14 Days Qty: 28 0RF Referrals: Yann Sun MD [Primary Care Provider, [facility]] Patient/Caregiver Discharge Instructions Discharge Activity: activity as tolerated Other Discharge Activity Instructions:: 1) Follow up with Dr. Masters in 1 week. Please call [phone] 2) Follow up at [facility], [address] [place] [address]. Call [phone] for appointment 3) May shower than change your dressings once a day and as needed for falling out or saturating. 4) Wound care to left 4th: -Wash hands with soap and water, remove old dressing including packing strips -Irrigate with normal saline well and pat dry -Repeat washing hands or change gloves -Pack wound with strip packing to the deepest portion of wound continuing until resistance is felt and cavity is filled. -Cover with dry gauze dressing and secure wth kerlix roll. Change once a day and as needed for falling off. Ambulate using heel of foot only, do no walk using toes. Avoid use of tight fitting shoes or socks until wound is healed. Elevate foot above heart level to help with swelling while sitting or laying down. If active bleeding occurs, apply tight dressing and return to MD or ER. ? Notify primary doctor or return to Emergency Room if any of the following: ? Fever above 100.6? F. ? Increased pain ? Increase swelling ? Red streaks around your wound ? Drainage becomes foul smelling or changes color ? The wound is larger or deeper ? The wound looks dried out or dark ? Bleeding that does not stop with holding pressure - Continue ceftriaxone 2 g daily till February 28, 2025 and doxycycline 100 mg twice a day till February 28, 2025 - Continue vitamin C and zinc - Maintain stricter control of your diabetes, take degludec 25 units daily and lispro 9 units with meals, follow-up with your primary care physician to discuss further options. - Continue follow-up with wound care outpatient, follow-up with Dr. Masters outpatient. 1) Follow up with Dr. Masters in 1 week. Please call [phone] 2) Follow up at [facility], [address] [place] [address]. Call [phone] for appointment 3) May shower than change your dressings once a day and as needed for falling out or saturating. 4) Wound care to left 4th: -Wash hands with soap and water, remove old dressing including packing strips -Irrigate with normal saline well and pat dry -Repeat washing hands or change gloves -Pack wound with strip packing to the deepest portion of wound continuing until resistance is felt and cavity is filled. -Cover with dry gauze dressing and secure wth kerlix roll. Change once a day and as needed for falling off. Ambulate using heel of foot only, do no walk using toes. Avoid use of tight fitting shoes or socks until wound is healed. Elevate foot above heart level to help with swelling while sitting or laying down. If active bleeding occurs, apply tight dressing and return to MD or ER. ? Notify primary doctor or return to Emergency Room if any of the following: ? Fever above 100.6? F. ? Increased pain ? Increase swelling ? Red streaks around your wound ? Drainage becomes foul smelling or changes color ? The wound is larger or deeper ? The wound looks dried out or dark ? Bleeding that does not stop with holding pressure Education Materials: Nutrition for Wound Healing, Changing Dressing Dc, Discharge Instructions Wound ..., Preventing Surgical Site Infections Print Language: Djiboutian Stand Alone Forms: Shonna Award Info., Patient Portal Info Letter Discharge Order Discharge Orders: Discharge (Routine); Ordered 01/24/25 Ordered By: Aury Javed Quality Discharge Quality Measures VTE prophylaxis Attestestation Attestation I have seen and examined the patient. I was physically present for the [place] portions of the services provided including history, physical exam, diagnosis, treatment plans and orders. I agree with assessment and plan of care as documented by residents. Even though this this note was carefully revised there may still be minor errors in medical certification specialist due to voice recognition software. Abe Villalobos MD
--- NOTE | 2025-01-25 09:37 | PC.SS ---
SS called patient's number on his facesheet is not correct [phone]. SS called his sister, Ciara [phone] who provided patient's correct phone# [phone]. SS called pt and was only able to leave voicemail reminding him of his PCP appointment and SS phone#.
== END 2025-01-24 11:50 | disposition home health service (06) | DRG 344 ==
LOC: SERX 14:26 → SERHOLD 15:43 → S3NX 18:53
PROVIDERS: Internal Medicine Infectious Disease; Nurse Practitioner Family; Surgery; Admitting Provider Student in an Organized Health Care Education/Training Program; Emergency Provider Emergency Medicine; PCP Family Medicine; Visit Provider Student in an Organized Health Care Education/Training Program
PROC: 0J9R0ZX Drainage of Left Foot Subcutaneous Tissue and Fascia, Open Approach, Diagnostic (ICD-10-PCS; principal; 2025-01-18 08:30)
DX: E11.628 Type 2 diabetes mellitus with other skin complications (principal); L02.612 Cutaneous abscess of left foot; L03.032 Cellulitis of left toe; E11.69 Type 2 diabetes mellitus with other specified complication; M86.172 Other acute osteomyelitis, left ankle and foot; T38.3X6A Underdosing of insulin and oral hypoglycemic [antidiabetic] drugs, initial encounter; E11.52 Type 2 diabetes mellitus with diabetic peripheral angiopathy with gangrene; E11.65 Type 2 diabetes mellitus with hyperglycemia; Z79.84 Long term (current) use of oral hypoglycemic drugs; Z91.148 Patient's other noncompliance with medication regimen for other reason; Z79.4 Long term (current) use of insulin; F17.200 Nicotine dependence, unspecified, uncomplicated; Z53.29 Procedure and treatment not carried out because of patient's decision for other reasons
CPT/HCPCS: 36415; 73718; 80053; 80076; 80202; 81001; 83605; 83735; 84100; 84145; 85025; 85610; 85652; 85730; 86140; 86703; 86803; 87070; 87075; 87086; 87205; 93925; 94664; 96365; 99283; A4217; A4649; C1751; C1894; J0692; J0696; J1100; J1642; J1644; J1815; J1885; J2250; J2312; J2371; J2405; J2543; J2704; J3010; J3373; J3375; J3490; J7050; A9270

== ENCOUNTER → 2025-02-08 | Outpatient (CLI) | payer MEDICAID, SELFPAY ==
--- NOTE | 2025-02-08 12:37 | XR_ITS ---
Examination: Foot, left, 3 views Technique: AP, oblique, lateral views foot, 3 views Date and time of exam: February 08, 2025, 1 0046 hours INDICATIONS: Postop foot surgery 1 week ago. FINDINGS: Cortical bone structure involving distal aspect proximal phalanx fourth digit and middle phalanx fourth digit No foreign body IMPRESSION: Osteomyelitis proximal and middle phalanges fourth digit
== END | disposition home or self-care (01) ==
LOC: SDIM 12:26
PROVIDERS: PCP Family Medicine; Referring Provider Podiatrist; Visit Provider Podiatrist
DX: M86.172 Other acute osteomyelitis, left ankle and foot (principal)
CPT/HCPCS: 73630

== ENCOUNTER 2025-02-16 10:00 | Emergency (ER) | payer MEDICAID, SELFPAY ==
[2025-02-16 10:47] VITALS: BP 123/77; PULSE 73; RESP 16; TEMP 36.8; O2SAT 99
--- NOTE | 2025-02-16 11:06 | PD.EDADULT ---
ED General YOUSUFE/HPI General Chief complaint: General Adult/Misc Complain Stated complaint: Dressing change to PICC line Time Seen by Provider: 02/16/25 11:06 Arrival date/time: 02/16/25 10:00 DOMI / MARIANNE LERMA complaint: Requesting dressing change for PICC line YOUSUFE / HPI narrative: 34-year-old male with past medical history of diabetes and osteomyelitis of his left foot who was advised by infectious disease to be on ceftriaxone along with doxycycline until February 28 presents to the ER for dressing change of his PICC line dressing on his right arm. Denies any fever, rash, chest pain, shortness of breath. Patient states his foot seems to be improving. 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 Well appearing. No acute distress. Not toxic appearing. Head: Normocephalic, atraumatic. Eyes: Conjunctiva clear. ENT: Mucous membranes moist. Neck: Trachea midline. Normal range of motion. No nuchal rigidity. Respiratory: Normal effort. No respiratory distress or accessory muscle use. Neuro: Alert and oriented. Speech normal. No focal gross motor or sensory deficits observed. Skin: Warm, dry, normal color. Right upper extremity: Right upper extremity on the median aspect a PICC line is present without surrounding erythema, discharge, tenderness, fluctuance, induration. PICC line is nontender to palpation. Dressing is old however intact. Left lower extremity: Flat soled shoe and dressing in place. Psych: Pleasant. Normal affect. Cooperative. Course Quality Measures none Vital Signs Vital signs: Vital Signs Temperature 98.3 F 02/16/25 10:47 Pulse Rate 73 02/16/25 10:47 Respiratory Rate 16 02/16/25 10:47 Blood Pressure 123/77 02/16/25 10:47 Pulse Oximetry (%) 99 02/16/25 10:47 Oxygen Delivery Method Room Air 02/16/25 10:47 Discharge Plan Plan Patient Disposition: HOME (Self Care) Patient condition on transfer: Stable Prescriptions/Referrals Prescriptions/Med Rec: No Action insulin degludec 100 unit/mL (3 mL) insulin pen 25 unit subcut HS Qty: 15 0RF insulin lispro [Humalog KwikPen Insulin] 100 unit/mL insulin pen 9 unit subcut AC Qty: 15 0RF (DME) pen needle, diabetic [Comfort EZ Pen [place]] 31 gauge x 1/4 needle See Rx Instructions .Route Qty: 100 0RF Rx Instructions: As directed ascorbic acid (vitamin C) [Vitamin C] 250 mg Tablet 500 mg PO BID 30 Days Qty: 120 0RF ceftriaxone in dextrose,iso-os 2 gram/50 mL piggyback 2 g IV QDAY PRN35 Days Qty: 0 0RF doxycycline hyclate 100 mg Tablet 100 mg PO BID 35 Days Qty: 70 0RF (DME) FreeStyle Colin 3 [place] Misc See Rx Instructions .Route Qty: 1 0RF Rx Instructions: As directed (DME) FreeStyle Colin 3 Sensor Device See Rx Instructions .Route Qty: 1 0RF Rx Instructions: As directed Referrals: Yann Sun MD [Primary Care Provider, Family Practice] - In 1 week Problem List Clinical Impression: Visit for wound care Patient/Caregiver Discharge Instructions Print Language: Mongolian Stand Alone Forms: Shonna Award Info., Patient Portal Info Letter MDM Narrative MDM hospital course (for use when minimal MDM required): Patient with a PICC line who has continuous infusions for left foot osteomyelitis presents for dressing changes his dressing is getting worn out. Clinically no appreciation for infection PICC line is still operable and not malfunctioning PICC line nurse came down and changed the dressing Plan for patient to continue with his antibiotic infusions follow-up with his PMD and infectious disease doctors with strict ER return precautions At the time of reassessment prior to discharge, the patient remains alert and oriented ?3 with GCS 15. Vitals are normal, pain is controlled, and the patient is tolerating oral intake without nausea or vomiting. The patient is agreeable to discharge and verbalizes understanding of the diagnosis, studies, treatment plan, medications (including side effects/precautions), and strict ER return precautions as discussed in the ED. All concerns were addressed, and the patient is comfortable with the plan. Clinical Information Provided by: none Medical Records reviewed None Labs/Rad/Tests considered, not ordered None
[2025-02-16 15:28] VITALS: BP 124/84; PULSE 66; RESP 16; TEMP 36.7; O2SAT 99
--- NOTE | 2025-02-16 15:59 | PC.NURSE ---
dressing changed by KWABENA Lagunas at this time
== END 2025-02-16 16:31 | disposition home or self-care (01) ==
PROVIDERS: Emergency Provider Physician Assistant; PCP Family Medicine
DX: Z48.00 Encounter for change or removal of nonsurgical wound dressing (principal); Z95.828 Presence of other vascular implants and grafts
CPT/HCPCS: 99281

== ENCOUNTER → 2025-03-07 | Outpatient (CLI) | payer MEDICAID, SELFPAY ==
--- NOTE | 2025-03-07 15:10 | XR_ITS ---
Examination: Foot, left, 3 views Technique: AP, oblique, lateral views foot, 3 views Date and time of exam: March 07, 2025, 1515 hours INDICATIONS: Left foot redness swelling and pain this week. FINDINGS: Osteomyelitis distal aspect proximal phalanx fourth digit and base of the middle phalanx fourth digit No fracture No foreign body IMPRESSION: Osteomyelitis proximal and middle phalanges fourth digit
== END | disposition home or self-care (01) ==
PROVIDERS: PCP Family Medicine; Referring Provider Podiatrist; Visit Provider Podiatrist
DX: M86.172 Other acute osteomyelitis, left ankle and foot (principal)
CPT/HCPCS: 73630

== ENCOUNTER 2025-03-09 11:59 | Emergency (ER) | payer MEDICAID, SELFPAY ==
[2025-03-09 12:00] VITALS: BMI 31.3
[2025-03-09 12:38] VITALS: BP 121/72; PULSE 98; RESP 18; TEMP 36.7; O2SAT 98; BMI 31.3
--- NOTE | 2025-03-09 12:40 | XR_ITS ---
Study: Chest 1 view. INDICATION: Possible retained foreign body following removal of a PIC line. FINDINGS: A PA upright chest radiograph of 1241 hours 09 March 2025 is compared with a study of 29 December 2004 demonstrating fully expanded lungs free from alveolar infiltrates and nodules. There is no identifiable radiopaque foreign body in the vascular tree. The pleural spaces are dry. Mediastinal structures are narrow and peripheral vessels are normal in distribution. IMPRESSION: No identifiable PIC line fragment.
--- NOTE | 2025-03-09 13:06 | PD.EDADULT ---
ED General RME/HPI General Chief complaint: Recheck/Abnormal Lab/Rx Stated complaint: PICC LINE CAME OUT, WANTS CHECKED ONLY Time Seen by Provider: 03/09/25 12:40 Arrival date/time: 03/09/25 11:59 34-year-old male presents to the emergency department today stating that his PICC line fell out today patient reports he does not want his PICC line replaced but just wants to make sure no remnants of the PICC line were left in his chest Limitations: no limitations Related Data Previous Rx's ?Medication ?Instructions ?Recorded insulin degludec 100 unit/mL (3 25 unit (0.25 mL) subcut HS #15 mL 01/22/25 mL) subcutaneous pen insulin lispro 100 unit/mL 9 unit (0.09 mL) subcut AC #15 mL 01/22/25 subcutaneous pen (Humalog KwikPen (U-100) Insulin) pen needle, diabetic 31 gauge x #100 ea 01/22/2503/13 (Comfort EZ Pen [place]) 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 sensor (FreeStyle #1 ea 01/24/25 Colin 3 Sensor device) 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,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,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 #1 ea 01/24/25 (FreeStyle Colin 3 [place]) Allergies Allergy/AdvReac Type Severity Reaction Status Date / Time pollen extracts Allergy Severe Swelling Verified 03/09/25 12:01 of Lip/Tongue/Throat Review of Systems Review of Systems Systems Reviewed: All systems reviewed, normal except as documented Constitutional Constitutional: Reports system reviewed and no additional complaints, except as documented, Denies fever(s) and Denies headache(s) Eyes Eyes: Reports system reviewed and no additional complaints, except as documented and Denies blurry vision ENT Ears, Nose, Mouth, and Throat: Reports system reviewed and no additional complaints, except as documented, Denies headache(s), Denies nasal congestion and Denies nasal discharge Cardiovascular Cardiovascular: Reports system reviewed and no additional complaints, except as documented, Denies chest pain and Denies dyspnea Respiratory Respiratory: Reports system reviewed and no additional complaints, except as documented, Denies chest congestion, Denies cough and Denies dyspnea Gastrointestinal Gastrointestinal: Reports system reviewed and no additional complaints, except as documented and Denies abdominal pain Integumentary/Breasts Skin/Breast: Reports system reviewed and no additional complaints, except as documented and Denies rash Neurologic Neurologic: Reports system reviewed and no additional complaints, except as documented, Reports as per HPI and Denies headache(s) Past Medical History Past Medical History NEUROLOGIC: Negative Neurological Disorders or Seizures CARDIAC: Negative Cardiac Disorders or Congestive Heart Failure RESPIRATORY: Negative Chronic Obstructive Pulmonary Disease (COPD) GASTROINTESTINAL: Positive Gastrointestinal Disorders (Fatty liver) GENITOURINARY: Negative Genitourinary Disorders or Renal Disease MUSCULOSKELETAL: Negative Musculoskeletal Disorders ENDOCRINE: Positive Endocrine Disorders and Diabetes Mellitus Type 2; Negative Diabetes Mellitus Type 1 HEMATOLOGIC: Negative Blood Disorders PSYCHO/SOCIAL: Negative Depression or Anxiety OTHER HISTORY: Negative Blood Transfusions, Blood Transfusion Reaction or Anesthesia Reactions Social History SMOKING STATUS: Never smoker ED Exam General Limitations: Present no limitations General appearance: Present alert and in no apparent distress Head Head exam: Present atraumatic Eye Eye exam: Present normal appearance, PERRL and EOMI ENT ENT exam: Present normal exam, normal oropharynx and mucous membranes moist Neck Neck exam: Present normal inspection, full ROM and trachea midline Chest Chest inspection: Present normal inspection and symmetric chest wall rise Respiratory Respiratory exam: Present normal lung sounds bilaterally; Absent respiratory distress Cardiovascular Cardiovascular exam: Present regular rate, normal rhythm and normal heart sounds Abdominal Exam Abdominal exam: Present soft and normal bowel sounds; Absent distention or tenderness Extremities Exam Extremities exam: Present normal inspection and full ROM Back Exam Back exam: Present normal inspection and full ROM Neurological Exam Neurological exam: Present alert, oriented X3, CN II-XII intact, normal gait and reflexes normal; Absent motor sensory deficit Psychiatric Psychiatric exam: Present normal affect and normal mood Skin Skin exam: Present warm, dry, intact and normal color Course Quality Measures none Orders Category Date Time Status XR chest 1V portable Stat Exams 03/09/25 12:40 Completed Vital Signs Vital signs: Vital Signs Temperature 98.1 F 03/09/25 12:38 Pulse Rate 98 03/09/25 12:38 Respiratory Rate 18 03/09/25 12:38 Blood Pressure 121/72 03/09/25 12:38 Pulse Oximetry (%) 98 03/09/25 12:38 Oxygen Delivery Method Room Air 03/09/25 12:38 O2 saturation 98% room air within normal limits Discharge Plan Plan Patient Disposition: HOME (Self Care) Discharge Disposition comment: Stable Prescriptions/Referrals Prescriptions/Med Rec: No Action insulin degludec 100 unit/mL (3 mL) insulin pen 25 unit subcut HS Qty: 15 0RF insulin lispro [Humalog KwikPen Insulin] 100 unit/mL insulin pen 9 unit subcut AC Qty: 15 0RF (DME) pen needle, diabetic [Comfort EZ Pen [place]] 31 gauge x 1/4 needle See Rx Instructions .Route Qty: 100 0RF Rx Instructions: As directed (DME) FreeStyle Colin 3 [place] Misc See Rx Instructions .Route Qty: 1 0RF Rx Instructions: As directed (DME) FreeStyle Colin 3 Sensor Device See Rx Instructions .Route Qty: 1 0RF Rx Instructions: As directed Referrals: Yann Sun MD [Primary Care Provider, Family Practice] - In 1 week Problem List Clinical Impression: PIC line (peripherally inserted central catheter) removal Patient/Caregiver Discharge Instructions Education Materials: Caring for Your PICC Dc Additional Instructions: Please follow up with your primary care doctor in the next 24-48hrs for any worsening symptoms return here immediately No foreign body noted Print Language: Citizen Of [place] Stand Alone Forms: Q-Sensei Award Info., Patient Portal Info Letter PA/ENTRY DRIVER OPERATOR Supervising Physician PA/EL Supervising Physician: dr jamison MDM Narrative MDM hospital course (for use when minimal MDM required): 34-year-old male presents to the emergency department today stating that his PICC line fell out today patient reports he does not want his PICC line replaced but just wants to make sure no remnants of the PICC line were left in his chest Clinically well-appearing does not appear look toxic no acute distress X-ray of the chest obtained no acute emergent findings noted no foreign body noted Patient discharged home in no distress to follow-up with primary care doctor in the next 24 to 48 hours and for any worsening symptoms to return to the ER immediately Clinical Information Provided by: patient Medical Records reviewed [facility] [place] Meds/Rx considered, not ordered None Labs/Rad/Tests considered, not ordered None Chronic Illness/Social Conditions which may negatively complicate care or outcome(s)-explain: None or not applicable EKG EKG not done Labs Labs: none Imaging Imaging interpretation: interpreted by me Medication Administration(s) none Diagnosis Differential Diagnosis ED Complaint MDM: Foreign body chest, normal exam
== END 2025-03-09 13:49 | disposition home or self-care (01) ==
PROVIDERS: Emergency Provider Emergency Medicine; PCP Family Medicine
DX: Z45.2 Encounter for adjustment and management of vascular access device (principal)
CPT/HCPCS: 71045; 99282